=== PATIENT | female | born 1955 | race Caucasian/White ===

== ENCOUNTER 2018-10-26 13:57 | Outpatient (REF) | payer OTHER, SELFPAY ==
[2018-10-26 15:47] LABS: HCT 41.7 % (36.0-46.0); HGB 13.7 g/dL (12.0-15.5); Mean Corp. HGB Concentration 32.9 g/dL (32.0-36.0); Mean Corpuscular Hemoglobin 31.2 pg (27.0-33.0); Mean Platelet Volume 10.6 fL (8.0-11.0); Platelet Count 287 x1000/uL (130-400); RBC 4.39 m/cumm (4.00-5.20); RBC Distribution Width 13.3 % (11.7-14.6); White Blood Cell Count 5.62 k/cumm (4.4-10.8)
[2018-10-26 16:57] LABS: ALT 26 U/L (12-78); AST 17 U/L (15-37); Albumin 4.2 g/dL (3.4-5.0); Alkaline Phosphatase 91 U/L (46-116); BUN 16 mg/dL (7-18); Bilirubin, Total 0.5 mg/dL (0.2-1.0); CREATININE 0.77 mg/dL (0.55-1.02); Calcium 8.8 mg/dL (8.5-10.1); Chloride 106 mmol/L (98-107); Glucose 95 mg/dL (70-100); Potassium 3.9 mmol/L (3.5-5.1); Sodium 143 mmol/L (136-145); Total Protein 6.9 g/dL (6.4-8.2)
[2018-10-27 17:20] LABS: HDL Cholesterol 76 mg/dL (40-60); LDL CHOLESTEROL 89 mg/dL (<100); Triglyceride 52 mg/dL (30-150)
[2018-10-27 17:39] LABS: Cholesterol 178 mg/dL (50-200)
== END 2018-10-26 14:17 ==
LOC: NCHCN 13:57
PROVIDERS: PCP Family Medicine; Visit Provider Family Medicine
DX: Z00.00 Encounter for general adult medical examination without abnormal findings (principal); E78.5 Hyperlipidemia, unspecified
CPT/HCPCS: 80053; 80061; 83721; 85027

== ENCOUNTER 2018-12-28 14:25 | Outpatient (REF) | payer OTHER, SELFPAY ==
--- NOTE | 2018-12-28 13:40 | PAPFT_PTH ---
PATIENT: Ayanna Brooks LOC: [facility] U#:[id number] AGE/SX: 63/F ROOM: RE12/28/[address]: Xochitl Jacome : 1955 BED: DIS: 12/28/2018 SPEC #: [id number] RECD: 12/28/18 18:01 STATUS: ESTEFANÍA RECheryl #: [id number] ORQUIDEA: 12/28/18 13:[address]: Xochitl Jacome DEPT: [facility] Cytology RECD BY: Mamie Monroy ENTERED: 12/28/18 18:01 SP TYPE: PAPFT OTHR DR: Catherine Green Tissues: 1 - CX/ENDOCX FOR PAP SMEARS Procedures: PAP THIN PREP/UVM Screening HPV DNA PROBE Comments: [id number]
== END 2018-12-28 14:45 ==
LOC: LBN 14:25
PROVIDERS: PCP Family Medicine; Visit Provider Obstetrics & Gynecology Gynecology
DX: Z12.4 Encounter for screening for malignant neoplasm of cervix (principal); Z11.51 Encounter for screening for human papillomavirus (HPV)
CPT/HCPCS: 88142; 87624

== ENCOUNTER 2019-01-11 00:12 | Outpatient (CLI) | payer OTHER, SELFPAY ==
--- NOTE | 2019-01-11 08:30 | DI.MAMMO_ITS ---
SYMPTOM/DIAGNOSIS: SCREENING Z12.31 MAMMOGRAM: Mammograms were interpreted according to the usual protocol including computer analysis with CAD system, tomosynthesis and C view imaging. Scattered fibronodular densities are demonstrated in both breasts. There is no dominant mass. There are no suspicious calcifications and there has been no significant interval change when compared with prior images. SUMMARY: No evidence of malignancy, Category 1, yearly screening mammography is recommended. [facility] ASSESSMENT OF FINDINGS: Negative. Category 1. Patient will receive a letter notifying them of these results. BI-RADS category B. There are scattered areas of fibroglandular density.
== END 2019-01-11 00:32 ==
PROVIDERS: PCP Family Medicine; Visit Provider Obstetrics & Gynecology Gynecology
DX: Z12.31 Encounter for screening mammogram for malignant neoplasm of breast (principal)
CPT/HCPCS: 77063; 77067

== ENCOUNTER 2019-02-28 15:40 | Outpatient (REF) | payer OTHER, SELFPAY ==
--- NOTE | 2019-02-28 15:00 | ENDO_PTH ---
PATIENT: Ayanna Brooks LOC: [facility] U#:[id number] AGE/SX: 63/F ROOM: RE02/28/[address]: Xochitl Jacome : 1955 BED: DIS: 02/28/2019 SPEC #: [id number] RECD: 02/28/19 17:16 STATUS: ESTEFANÍA NICOLAS #: [id number] ORQUIDEA: 02/28/19 15:[address]: Xochitl Jacome DEPT: Surgical Specimen RECD BY: Mamie Monroy ENTERED: 02/28/19 17:17 SP TYPE: Endo OTHR DR: Catherine Green Tissues: 1 - ENDOCERVICAL BX/CURRETTE Procedures: GROSS AND MICRO LEVEL 4 Comments: [id number]
== END 2019-02-28 16:00 ==
LOC: LBN 15:40
PROVIDERS: PCP Family Medicine; Visit Provider Obstetrics & Gynecology Gynecology
DX: N88.8 Other specified noninflammatory disorders of cervix uteri (principal); R87.612 Low grade squamous intraepithelial lesion on cytologic smear of cervix (LGSIL); Z78.0 Asymptomatic menopausal state
CPT/HCPCS: 88305

== ENCOUNTER 2019-11-07 09:18 | Outpatient (REF) | payer OTHER, SELFPAY ==
[2019-11-07 14:42] LABS: ALT 28 U/L (14-59); AST 17 U/L (15-37); Alkaline Phosphatase 106 U/L (46-116); BUN 16 mg/dL (7-18); Bilirubin, Total 0.4 mg/dL (0.2-1.0); CREATININE 0.61 mg/dL (0.55-1.02); Calcium 8.8 mg/dL (8.5-10.1); Calculated LDL 79 mg/dL (<100); Chloride 106 mmol/L (98-107); Cholesterol 161 mg/dL (<200); Glucose 95 mg/dL (74-106); HDL Cholesterol 67 mg/dL (40-60); Potassium 4.3 mmol/L (3.5-5.1); Sodium 144 mmol/L (136-145); Total Protein 6.6 g/dL (6.4-8.2); Triglyceride 79 mg/dL (<150)
== END 2019-11-07 09:38 ==
LOC: NCHCN 09:18
PROVIDERS: PCP Family Medicine; Visit Provider Family Medicine
DX: R00.2 Palpitations (principal); E78.5 Hyperlipidemia, unspecified; K21.9 Gastro-esophageal reflux disease without esophagitis; Z00.00 Encounter for general adult medical examination without abnormal findings
CPT/HCPCS: 80053; 80061

== ENCOUNTER 2020-03-09 02:13 | Outpatient (CLI) | payer OTHER, SELFPAY ==
--- NOTE | 2020-03-09 15:42 | DI.MAMMO_ITS ---
EXAM: MAMMO SCREENING CLINICAL HISTORY: screening TECHNIQUE: Mammograms were interpreted according to the usual protocol including computer analysis w [employer] CAD system, tomosynthesis and C-view imaging. COMPARISON: 2009 through 2018 FINDINGS: The breasts are composed of scattered fibroglandular densities, Breast Density category B. No suspicious masses or suspicious microcalcifications are seen. No skin thickening or abnormal axillary lymph nodes are seen. There has been no significant change from prior exams. IMPRESSION: BI-RADS category 1, yearly screening mammography is recommended. Breast density category B, scattered fibroglandular densities.
== END 2020-03-09 02:33 ==
PROVIDERS: PCP Family Medicine; Visit Provider Obstetrics & Gynecology Gynecology
DX: Z12.31 Encounter for screening mammogram for malignant neoplasm of breast (principal)
CPT/HCPCS: 77063; 77067

== ENCOUNTER 2020-03-09 15:41 | Outpatient (REF) | payer OTHER, SELFPAY ==
--- NOTE | 2020-03-09 15:00 | PAPFT_PTH ---
PATIENT: Ayanna Brooks LOC: [facility] U#:[id number] AGE/SX: 64/F ROOM: RE03/09/[address]: TRE Clarke : 1955 BED: DIS: 03/09/2020 SPEC #: [id number] RECD: 03/12/20 12:55 STATUS: ESTEFANÍA RECheryl #: [id number] ORQUIDEA: 03/09/20 15:[address]: Dilma Briones DEPT: [facility] Cytology RECD BY: Mamie Monroy ENTERED: 03/12/20 12:55 SP TYPE: PAPFT OTHR DR: Catherine Green Tissues: 1 - CX/ENDOCX FOR PAP SMEARS Procedures: PAP THIN PREP/UVM Screening HPV DNA PROBE Comments: [id number]
== END 2020-03-09 16:01 ==
LOC: LBN 15:41
PROVIDERS: PCP Family Medicine; Visit Provider Nurse Practitioner Family
DX: Z12.4 Encounter for screening for malignant neoplasm of cervix (principal); Z11.51 Encounter for screening for human papillomavirus (HPV)
CPT/HCPCS: 88142; 87624

== ENCOUNTER 2020-09-26 10:37 | Outpatient (REF) | payer BC, SELFPAY ==
[2020-09-26 21:54] LABS: HCT 41.6 % (36.0-46.0); HGB 13.4 g/dL (11.2-15.7); MCHC 32.2 % (32.0-36.0); MCV 96.3 fL (80-95); MPV 10.3 fL (8.0-11.0); Platelet Count 273 10^3/uL (130-400); RBC 4.32 10^6/uL (3.93-5.22); RDW 12.8 % (11.7-14.6)
[2020-09-26 22:15] LABS: ALT 37 U/L (14-59); AST 20 U/L (15-37); Alkaline Phosphatase 101 U/L (46-116); Anion Gap 5.7 mmol/L (3-11); BUN 18 mg/dL (7-18); Bilirubin, Total 0.4 mg/dL (0.2-1.0); CO2 29.3 mmol/L (21.0-32.0); CREATININE 0.76 mg/dL (0.55-1.02); Calcium 8.6 mg/dL (8.5-10.1); Calculated LDL 103 mg/dL (<100); Chloride 107 mmol/L (98-107); Cholesterol 191 mg/dL (<200); Glucose 95 mg/dL (74-106); HDL Cholesterol 74 mg/dL (40-60); Sodium 142 mmol/L (136-145); Total Protein 6.5 g/dL (6.4-8.2); Triglyceride 72 mg/dL (<150)
== END 2020-09-26 10:57 ==
LOC: NCHCN 10:37
PROVIDERS: PCP Family Medicine; Visit Provider Family Medicine
DX: Z00.00 Encounter for general adult medical examination without abnormal findings (principal); E78.5 Hyperlipidemia, unspecified
CPT/HCPCS: 80053; 80061; 85027

== ENCOUNTER 2021-01-28 01:25 | Outpatient (CLI) | payer BC, SELFPAY ==
--- NOTE | 2021-01-28 13:30 | DI.MAMMO_ITS ---
Exam(s) MAMMO SCREENING EXAM: MAMMO SCREENING CLINICAL HISTORY: screening,Z12.39 TECHNIQUE: Bilateral full field digital CC and MLO mammographic images were obtained with 3D tomosyn thesis and utilizing computer aided detection (CAD). COMPARISON: Available for comparison. FINDINGS: Masses/Architectural Distortion: None seen. Microcalcifications: No suspicious pleomorphic-type are seen. Skin Thickening/Nipple Retraction: None. IMPRESSION: 1. No significant interval change with no specific features of malignancy noted. 2. Unless there is more urgent need, screening mammography is recommended, as per [employer] guidelines. BI-RADS Category 1 - Negative Breast Density - Category B - Scattered areas of fibroglandular density Breast density category C or D implies that the patient has dense breast tissue. Dense breast tissue is very common and is not abnormal but dense breast tissue can make it harder to find cancer on a ma mmogram. Also, dense breast tissue may increase their breast cancer risk. This information about the result of the mammogram report was provided to the patient to raise their awareness. Use this report when you speak with the patient about their risks for breast cancer, which includes their family hist ory. At that time, you may recommend for more screening tests (Ultrasound or MRI) as they might be us eful based on their risk. A negative radiographic report should not delay biopsy if a dominant or clinically suspicious mass is present. Up to ten percent of cancers are not identified on mammography. A negative report may reinforce clinical impression. Adenosis and dense breasts may obscure an underlying neoplasm. False positive reports average 6 to 10%. Patient will receive a letter notifying them of these results.
== END 2021-01-28 01:45 ==
PROVIDERS: PCP Family Medicine; Visit Provider Nurse Practitioner Family
DX: Z12.31 Encounter for screening mammogram for malignant neoplasm of breast (principal)
CPT/HCPCS: 77063; 77067

== ENCOUNTER 2021-01-28 17:53 | Outpatient (REF) | payer BC, SELFPAY ==
--- NOTE | 2021-01-28 15:00 | PAPFT_PTH ---
PATIENT: Ayanna Brooks LOC: [facility] U#:[id number] AGE/SX: 65/F ROOM: RE01/28/[address]: TRE Clarke : 1955 BED: DIS: 01/28/2021 SPEC #: [id number] RECD: 01/28/21 18:37 STATUS: ESTEFANÍA RECheryl #: [id number] ORQUIDEA: 01/28/21 15:[address]: Dilma Briones DEPT: [facility] Cytology RECD BY: Mamie Monroy ENTERED: 01/28/21 18:38 SP TYPE: PAPFT OTHR DR: Catherine Green Tissues: 1 - CX/ENDOCX FOR PAP SMEARS Procedures: PAP THIN PREP/UVM Screening HPV DNA PROBE Comments: [id number]
== END 2021-01-28 17:54 | disposition home or self-care (01) ==
LOC: LBN 17:53
PROVIDERS: PCP Family Medicine; Visit Provider Nurse Practitioner Family
DX: Z12.4 Encounter for screening for malignant neoplasm of cervix (principal); Z87.42 Personal history of other diseases of the female genital tract; Z11.51 Encounter for screening for human papillomavirus (HPV)
CPT/HCPCS: 88142; 87624

== ENCOUNTER 2021-06-13 02:04 | Outpatient (CLI) | payer BC, SELFPAY ==
--- NOTE | 2021-06-13 | DI.RAD_ITS ---
Exam(s) XR THORACIC SPINE COMPLETE EXAM: XR THORACIC SPINE COMPLETE CLINICAL HISTORY: THORACIC SPINE PAIN M54.6. TECHNIQUE: 2D digital imaging was performed of the thoracic spine. Four views were obtained. AP, s juan carlos's and lateral views were obtained. COMPARISON: No exams were available for comparison FINDINGS: BONES: There is a mild superior endplate compression deformity of T10. It is of indeterminate acuity . There are no priors for comparison. The vertebral bodies and posterior elements are unremarkable. DISKS:There is a very mild right convex curvature of the thoracic spine. Mild degenerative changes a re seen in the mid and lower thoracic spine with hypertrophic spurring present. SOFT TISSUE: Visualized lungs are clear. IMPRESSION: Mild superior compression deformity of T10 of indeterminate acuity. Please correlate with patient's symptomatology. Follow-up with MRI or CT scan may be considered. DATA REPOSITORY: RADIATION DOSE DELIVERED:
== END 2021-06-13 02:24 ==
PROVIDERS: PCP Family Medicine; Visit Provider Family Medicine
DX: M54.6 Pain in thoracic spine (principal); M53.84 Other specified dorsopathies, thoracic region
CPT/HCPCS: 72072

== ENCOUNTER 2021-11-14 18:17 | Outpatient (REF) | payer BC, SELFPAY ==
[2021-11-14 14:58] LABS: ALT 24 U/L (14-59); AST 14 U/L (15-37); Albumin 4.2 g/dL (3.4-5.0); Alkaline Phosphatase 120 U/L (46-116); Anion Gap 7.2 mmol/L (3-11); BUN 17 mg/dL (7-18); Bilirubin, Total 0.5 mg/dL (0.2-1.0); CO2 29.8 mmol/L (21.0-32.0); CREATININE 0.7 mg/dL (0.55-1.02); Calcium 9.1 mg/dL (8.5-10.1); Calculated LDL 85 mg/dL (<100); Chloride 105 mmol/L (98-107); Cholesterol 176 mg/dL (<200); Glucose 92 mg/dL (74-106); HDL Cholesterol 73 mg/dL (40-60); Potassium 4.3 mmol/L (3.5-5.1); Sodium 142 mmol/L (136-145); Triglyceride 94 mg/dL (<150)
[2021-11-14 15:19] LABS: Vitamin D 25 Total 33.4 ng/mL (30-100)
== END 2021-11-14 18:18 | disposition home or self-care (01) ==
LOC: NCHCN 18:17
PROVIDERS: PCP Family Medicine; Visit Provider Family Medicine
DX: E78.5 Hyperlipidemia, unspecified (principal); E55.9 Vitamin D deficiency, unspecified; Z00.00 Encounter for general adult medical examination without abnormal findings
CPT/HCPCS: 80053; 80061; 82306

== ENCOUNTER → 2022-02-10 02:32 | Outpatient (CLI) | payer BC, SELFPAY ==
--- NOTE | 2022-02-10 10:30 | DI.MAMMO_ITS ---
Exam(s) MAMMO SCREENING EXAM: MAMMO SCREENING CLINICAL HISTORY: screening TECHNIQUE: Bilateral full field digital CC and MLO mammographic images were obtained with 3D tomosyn thesis and utilizing computer aided detection (CAD). COMPARISON: Available for comparison. FINDINGS: Masses/Architectural Distortion: Stable breast nodules. No suspicious nodules or areas of architectu ral distortion. Microcalcifications: No suspicious pleomorphic-type are seen. Skin Thickening/Nipple Retraction: None. IMPRESSION: 1. No significant interval change with no specific features of malignancy noted. 2. Unless there is more urgent need, screening mammography is recommended, as per [employer] guidelines. BI-RADS Category 1 - Negative Breast Density - Category B - Scattered areas of fibroglandular density Breast density category C or D implies that the patient has dense breast tissue. Dense breast tissue is very common and is not abnormal but dense breast tissue can make it harder to find cancer on a ma mmogram. Also, dense breast tissue may increase their breast cancer risk. This information about the result of the mammogram report was provided to the patient to raise their awareness. Use this report when you speak with the patient about their risks for breast cancer, which includes their family hist ory. At that time, you may recommend for more screening tests (Ultrasound or MRI) as they might be us eful based on their risk. A negative radiographic report should not delay biopsy if a dominant or clinically suspicious mass is present. Up to ten percent of cancers are not identified on mammography. A negative report may reinforce clinical impression. Adenosis and dense breasts may obscure an underlying neoplasm. False positive reports average 6 to 10%. Patient will receive a letter notifying them of these results.
== END ==
PROVIDERS: PCP Family Medicine; Visit Provider Nurse Practitioner Family
DX: Z12.31 Encounter for screening mammogram for malignant neoplasm of breast (principal)
CPT/HCPCS: 77063; 77067

== ENCOUNTER 2022-11-04 07:40 | Day surgery (SDC) | payer BC, SELFPAY ==
--- NOTE | 2022-11-03 20:27 | PDOC.DSDIS_ITS ---
Date of service: 11/04/22 Time of Service: 09:35 Discharge Plan Disposition Patient Disposition: Home Condition: Good Discharge Details Reason For Visit: Colonoscopy Attending Provider: Asif Perkins Primary Care Provider: Catherine Green Home Meds and New Rx's Prescriptions: Continued zolpidem [Ambien] 5 mg tablet 5 mg PO QHS PRN omeprazole 10 MG capsule,delayed release(DR/EC) 20 mg PO DAILY multivitamin [Daily Multi-Vitamin] 1 EACH tablet 1 ea PO DAILY fish,bora,flax oils-om3,6,9no1 [[place] 3-6-9 Complex] 400 MG capsule 400 mg PO DAILY calcium carbonate-vitamin D3 1,000 mg(2,500 mg)-800 unit tablet 1 tab PO DAILY alprazolam [Xanax] 0.25 mg tablet 0.125 mg PO PRN Label Comments: loratadine 10 mg tablet 10 mg PO DAILY PRN benzonatate 100 mg capsule 100 mg PO TID albuterol sulfate [Ventolin HFA] 90 mcg/actuation HFA aerosol inhaler 2 puff inhalation Q6H PRN metoprolol tartrate 25 mg tablet 12.5 mg PO BID PRN (Reason: paroxysmal atrial fibrillation) Qty: 90 5RF atorvastatin [Lipitor] 20 MG tablet 20 mg PO HS Held Xarelto 20 mg tablet 20 mg PO DAILY Qty: 90 6RF Hold Instructions: Resume on 11/05/22. Discontinued bisacodyl [Dulcolax (bisacodyl)] 5 mg tablet,delayed release (DR/EC) 5 mg PO ONCE Qty: 4 0RF Rx Instructions: Take according to provider's instructions for colonoscopy prep. polyethylene glycol 3350 17 gram/dose powder 17 g PO ONCE Qty: 238 0RF Rx Instructions: To be taken as directed by prescriber's office for colonoscopy prep. Discharge Instructions Instructions: Hemorrhoids (GEN), Colorectal Polyps (GEN) Additional Instructions: Ayanna, we were able to complete your colonoscopy today without any difficulty. I did find a polyp. I removed to completely. You also have some very mild internal hemorrhoids. When I have the pathology report on the polyp, I will contact you and notify you if you need to do anything else. 1. If tolerated, consume a soft, low fiber diet for 1-2 days. 2[address] Do not drive, drink alcohol, operate machinery, make critical decisions, or do activities that require coordination or balance for 24 hours. 3. Because air was put into your colon during the procedure, expelling air from your rectum (passing gas or farting) is normal. 4. You may not have a bowel movement for 1-3 days because of the colonoscopy prep. This is normal. 5. Go directly to the emergency room if you notice any of the following: Develop chills (warm to touch), or if you have a thermometer and your temperature is above 101 Difficulty breathing or difficultly swallowing Persistent vomiting Severe abdominal pain, other than gas cramps Severe chest pain Black, tarry stools Any bleeding ? exceeding one tablespoon 6. Call your physician if the site where your intravenous was started becomes red, swollen, painful, and warm to touch. 7. Your physician has reviewed your pre-procedure medications. Please continue to take those medications as previously ordered. You will be given specific information/education regarding any changes to your medications before leaving. Activity:: Activity as Tolerated Diet:: As Tolerated Discharge Orders Discharge Orders: Discharge Order (Routine); Ordered 11/03/22 Ordered By: Asif Perkins DS: Diagnosis Discharge Diagnosis (1) Screening for colon cancer: Status: Acute Asessment and Plan: Follow-up: Polyp
--- NOTE | 2022-11-03 20:30 | W.COLOREPORT ---
Date of service: 11/04/22 Time of Service: 09:36 Colonoscopy Report Date of procedure: 11/04/22 Pre-op diagnosis general: Screening colonoscopy Post-op diagnosis procedure note: other (Colon polyp, mild internal hemorrhoids) Procedure: Colonoscopy Surgeon: Asif Perkins Anesthesia Type: General:No Airway Estimated blood loss (mL): 5 Pathology: other (Colon polyp at 70 cm near the hepatic flexure) Complications: None Disposition: same day Indications: Fidelia is a 66 year old woman who presents for a screening colonoscopy Prep: Miralax/Dulcolax Procedure Start Time: 08:59 Procedure End Time: 09:15 Retraction Time: 11 Findings: Mild internal hemorrhoids, colon polyp at 70 cm Procedure Description: After the induction of monitored anesthetic care, and with the patient in left lateral decubitus position, I began by performing an external anorectal exam.? Perineum and skin were normal, as was the anal verge.? There was no evidence of external hemorrhoids.? Next, I performed a digital rectal exam.? I did not appreciate any abnormal findings.? Next, I advanced a colonoscope into the rectal vault.? I performed retroflexion.? There are grade 1 internal hemorrhoids.? Using insufflation, I then advanced the colonoscope beyond the rectal folds and into the sigmoid colon before advancing towards the cecum.? The quality of the prep was excellent.? The scope was noted to be in the cecum by identification of the ileocecal valve and appendiceal orifice.? I then began withdrawing the colonoscope using repeated irrigation as necessary for full evaluation of the colonic mucosa. Around 70 cm from the anal verge I identified a 0.75 cm polyp. ?It appeared pedunculated in character. ?I was able to remove this with a snare polypectomy. ?I examined the site, and there was minimal bleeding. ?Once this was completed, I continued to withdraw the scope and examine the remainder of the colonic mucosa.?Once the scope was withdrawn to the level of the rectum, great care was taken to examine portions of the rectal folds.? Finally, the scope was withdrawn and the patient was brought to the same-day surgery recovery unit as the anesthetic wore off. ?The findings and instructions were shared with the patient prior to discharge.
[2022-11-04 07:59] VITALS: BP 139/87; PULSE 109; RESP 20; TEMP 36.3; O2SAT 100
[2022-11-04] MEDS: Lactated Ringers 1,000 ML 80 ML IV (08:22)
--- NOTE | 2022-11-04 08:24 | ANES.PREOP_ITS ---
General Info Date of Service Date Performed: 11/04/22 Height: 5 ft 6 in Weight: 66.8 kg Body Mass Index (BMI): 23.8 Surgical Procedure: Operation Date: 11/04/22 09:05 Proposed Procedure Side Surgeon manish Perkins MD Meds Allergies and Home Medications Allergies Allergy/AdvReac Type Severity Reaction Status Date / Time amoxicillin Allergy Severe Hives Verified 11/04/22 08:11 codeine AdvReac Intermediate feel like Verified 11/04/22 08:11 things sre crawing on my skin hydrocodone [From Vicodin] AdvReac Intermediate Nausea Verified 11/04/22 08:11 Home Medication Medication Instructions Recorded omeprazole 10 mg capsule,delayed 20 mg PO DAILY 06/08/13 release fish, borage, flaxseed oils-omega 400 mg PO DAILY 07/14/16 3,6,9 cb #1 400 mg-400 mg-400 mg cap ([place] 3-6-9 Complex) multivitamin (Daily Multi-Vitamin 1 ea PO DAILY 07/14/16 tablet) atorvastatin 20 mg tablet (Lipitor) 20 mg PO HS 01/05/17 calcium carbonate 1,000 mg-vitamin 1 tab PO DAILY 02/28/19 D3 20 mcg (800 unit) tablet alprazolam 0.25 mg tablet (Xanax) 0.125 mg PO PRN 10/28/19 loratadine 10 mg tablet 10 mg PO DAILY PRN 10/28/19 rivaroxaban 20 mg tablet (Xarelto) 20 mg PO DAILY #90 tab-caps 10/28/19 zolpidem 5 mg tablet (Ambien) 5 mg PO QHS PRN 12/06/21 albuterol sulfate 90 mcg/actuation 2 puff inhalation Q6H PRN 01/10/22 aerosol inhaler (Ventolin HFA) benzonatate 100 mg capsule 100 mg PO TID 01/10/22 metoprolol tartrate 25 mg tablet 12.5 mg PO BID PRN paroxysmal 04/18/22 atrial fibrillation #90 tabs Current Visit Medications: Current Medications Generic Name Dose Route Start Last Admin Trade Name Freq PRN Reason Stop Dose Admin Hyoscyamine Sulfate 0.125 mg 11/03/22 20:32 Hyoscyamine 0.125 Mg Sl/Oral/Chew SL DIRECTED PRN Ringer's Solution 1,000 mls @ 80 mls/hr 11/04/22 06:00 11/04/22 08:22 IV 12/03/22 23:59 80 mls/hr INFUSION DILMA Administration IV Miscellaneous Supplies 1 each 11/04/22 06:00 Iv Access IV 12/03/22 23:59 DIRECTED DILMA Ondansetron HCl 4 mg 11/03/22 20:32 Ondansetron 4 Mg/2 Ml Vial IVP Q4H PRN PRN Nausea / Vomiting Sodium Chloride 0 ml 11/04/22 06:00 Normal Saline Flush 10 Ml Syr IV 12/03/22 23:59 PRN PRN Sodium Chloride 0 ml 11/04/22 06:00 Normal Saline 10 Ml Vial IJ 12/03/22 23:59 DIRECTED PRN Sterile Water 0 ml 11/04/22 06:00 Water,Injection,Sterile 10 Ml Vial IJ 12/03/22 23:59 DIRECTED PRN PFSH Active Problems Active Problems: Problem Status Onset Code Paroxysmal atrial fibrillation 02/19/18 I48.0 Mitral valve prolapse 07/16/17 I34.1 History of sleep apnea 02/19/18 Z86.69 Gastroesophageal reflux disease without esophagitis 07/16/17 K21.9 Colitis 07/16/17 K52.9 Screening for colon cancer Z12.11 Collagenous colitis K52.831 Medical History Medical History Abnormal Pap smear of cervix Hx of [facility] in [place] prior to 2007. Result CIN1. 2012 LEEP @ [facility]. PAP: LGSIL x2, 2015. HPV: Neg. Adenomatous colon polyp Anxiety Colitis De Quervain's tenosynovitis Left - injection: 03/28/2019 Ganglion cyst of finger of right hand GERD (gastroesophageal reflux disease) History of postmenopausal HRT (07/10/15) History of sleep apnea Hyperlipidemia, mixed Low grade squamous intraepithelial lesion on cytologic smear of cervix (LGSIL) (07/16/17) CIN1 on [facility] in [place], prior to 2007. LGSIL -2010,2011 x2, 2015. Neg HPV with all Paps. 2012 - LEEP 02/28/2019. Colpo with ECC: Negative dysplasia. Patient will have a repeat Pap in 1 year Mitral valve prolapse followed by [facility] Cardiology. Osteopenia Papanicolaou smear of cervix with low grade squamous intraepithelial lesion (LGSIL) (06/08/13) Paroxysmal atrial fibrillation Pneumonia in 01/10 Postmenopausal HRT (hormone replacement therapy) 2007 OCPs for irreg menses. VMS after stopping OCPs 2009 HRT for postmenopausal VMS. Right elbow tendonitis Right lateral epicondylitis (08/20/15) Trigger finger Injection: 03/28/2019 Vitamin D deficiency Medical History Comments:: 11/04/22 History of PONV, pt reports helpful to have some Zofran. Surgical History Surgical History (Updated 11/04/22 @ 08:12 by Francesca Guzman RN) History of hand surgery R elbow surgery Rx for tendenitis. S/P UPPP (uvulopalatopharyngoplasty) (02/19/18) S/P uvulopalatopharyngoplasty Tobacco Smoking/Tobacco Use Status: Never Alcohol Alcohol Intake: current Alcohol intake frequency: a few times a week Substance Use Substance use: Never Substance use type: does not use Prental History History 0 Para Hx # Term Pregnancies Multiple births Hx # Pregnancies Ectopic pregnancies AB induced Hx Number of Living Children AB spontaneous Vital Signs and Lab Results Vital Signs Most Recent Vital Signs in EMR: Most Recent Vital Signs Temp Pulse Resp BP Pulse Ox 36.3 C L 109 H 20 139/87 100 11/04/22 07:59 11/04/22 07:59 11/04/22 07:59 11/04/22 07:59 11/04/22 07:59 Lab Results Blood Type / Crossmatch: No Data to Display Complete Blood Count: No Data to Display Complete Metabolic Panel: No Data to Display Liver Function Panel: No Data to Display Coagulation Panel: No Data to Display Cardiac Panel: No Data to Display Arterial Blood Gas: No Data to Display Venous Blood Gas: No Data to Display Pancreas Panel: No Data to Display Thyroid Panel: No Data to Display Infectious Disease: No Data to Display Blood Cultures: No Data to Display Toxicology Panel: No Data to Display Imaging and Studies Imaging and Studies Study information below may be from another EMR and interpreted by another provider. Please see original notes in EMR for more complete details. Echocardiogram Summary: Date of study: 08/04/2017 Transthoracic Echocardiography M-mode, complete 2D, complete spectral Doppler, and color Doppler *STUDY CONCLUSIONS* Summary: 1. Left ventricle: The cavity size was normal. Wall thickness was normal. Systolic function was normal. The estimated ejection fraction was 55-60%. Wall motion was normal; there were no regional wall motion abnormalities. 2. Mitral valve: Moderate thickening of the anterior leaflet, consistent with myxomatous proliferation. Late systolic systolic bowing without prolapse, involving the anterior leaflet. There was no significant regurgitation. 3. Right ventricle: The cavity size was normal. Wall thickness was normal. Systolic function was normal. Anesthesia Assessment and Plan Anesthesia History Personal History: PONV Family History: No Family History of Anesthesia Complications Exercise Tolerance Exercise Tolerance: Metabolic Equivalents>4 Pertinent Negatives Pertinent Negatives: No Symptoms of GERD Cardiac & Pulmonary Exam Cardiac Exam: Normal S1/S2 Heart Sounds Pulmonary Exam: Clear Bilateral Breath Sounds Implantable Cardiac Device Does patient have a Pacemaker or an ICD?: No Airway Exam Known Difficult Airway: No Mallampati Class: 1 Mouth Opening: Normal (> 3cm) Thyromental Distance: Greater than 3 cm Neck Range of Motion: Full ROM Neck Circumference: Normal Teeth Condition: Normal Dentition ASA Classification ASA Score: ASA 3 Emergency Case?: No NPO Status NPO Status: NPO Clears >2 hours, Solids >8 hours Anesthesia Plan Resuscitation Status: Full Code Anesthesia Technique: General Anesthesia Airway Planned: Natural Airway Monitors Used: Standard Monitors
[2022-11-04 08:48] VITALS: BMI 23.8
--- NOTE | 2022-11-04 09:07 | BOWEL_PTH ---
PATIENT: Ayanna Brooks LOC: [facility] U#:[id number] AGE/SX: 66/F ROOM: RE11/04/[address]: Asif Perkins MD : 1955 BED: DIS: 11/04/2022 SPEC #: [id number] RECD: 11/04/22 12:43 STATUS: ESTEFANÍA REQ #: [id number] ORQUIDEA: 11/04/22 09:[address]: Asif Perkins DEPT: Surgical Specimen RECD BY: Mamie Monroy ENTERED: 11/04/22 12:44 SP TYPE: Bowel OTHR DR: Catherine Green Tissues: 1 - BIOPSY BOWEL Procedures: GROSS AND MICRO LEVEL 4 Comments: [id number]
[2022-11-04 09:26] VITALS: BP 103/65; PULSE 84; RESP 16; TEMP 36.2; O2SAT 98
[2022-11-04 09:50] VITALS: BP 101/71; PULSE 68; RESP 16; TEMP 36.4; O2SAT 98
--- NOTE | 2022-11-04 09:59 | W.ANESPOSTOP ---
Postoperative Evaluation Date, Time and Location Date Performed: 11/04/22 Time Performed: 09:55 Patient Location: Day Surgery Unit Vital Signs Most Recent Imported Vital Signs: Most Recent Vital Signs Temp Pulse Resp BP Pulse Ox 36.4 C L 68 16 101/71 98 11/04/22 09:50 11/04/22 09:50 11/04/22 09:50 11/04/22 09:50 11/04/22 09:50 Pain Score Most Recent Pain Score: Most Recent Pain Score Pain Level 0 11/04/22 09:50 Assessment Mental Status: Awake (Alert & Oriented to Patient Baseline) Airway and Respiratory Function: Patent airway with normal (patient baseline) respiratory exam Cardiovascular Function: Hemodynamically Stable Hydration Status: Adequately Hydrated Nausea & Vomiting: No Nausea or Vomiting Pain: Pt. Denies Any Pain Peripheral Nerve Block: Patient did not receive a nerve block
== END 2022-11-04 10:14 | disposition home or self-care (01) ==
PROVIDERS: PCP Family Medicine; Visit Provider Surgery
PROC: 0DJD8ZZ Inspection of Lower Intestinal Tract, Via Natural or Artificial Opening Endoscopic (ICD-10-PCS; CPT 45378; principal; 2022-11-04 09:00)
DX: Z12.11 Encounter for screening for malignant neoplasm of colon (principal); K63.5 Polyp of colon; K64.8 Other hemorrhoids
CPT/HCPCS: 45385; 88305; J2405

== ENCOUNTER 2022-12-01 09:09 | Outpatient (CLI) | payer OTHER, SELFPAY ==
--- NOTE | 2022-12-01 09:00 | RT.EKG_ITS ---
APPROVED REPORT Exam: Resting ECG Reason for Exam: paroxysmal Afib Patient Location: O HR:95 bpm ECG Measurements Heart Rate 95 AXIS WI 150 P 46 QRSd 100 QRS 28 QT 349 T 43 QTc 439 Conclusion Sinus rhythm...normal P axis, V-rate 50- 99 Normal Electrocardiogram
== END 2022-12-01 09:10 | disposition home or self-care (01) ==
LOC: DI.CARD 09:09
PROVIDERS: PCP Family Medicine; Visit Provider Internal Medicine Cardiovascular Disease
DX: I48.0 Paroxysmal atrial fibrillation (principal)
CPT/HCPCS: 93010

== ENCOUNTER → 2022-12-01 10:52 | Outpatient (BNVA) | payer OTHER, SELFPAY | PROVIDERS: PCP Family Medicine; Visit Provider Internal Medicine Cardiovascular Disease | DX: I48.0 Paroxysmal atrial fibrillation (principal); I34.1 Nonrheumatic mitral (valve) prolapse; Z79.01 Long term (current) use of anticoagulants | CPT/HCPCS: 93005; 99214 ==

== ENCOUNTER 2022-12-01 18:08 | Outpatient (REF) | payer OTHER, SELFPAY ==
[2022-12-01 15:31] LABS: ALT 21 U/L (14-59); AST 12 U/L (15-37); Albumin 4.3 g/dL (3.4-5.0); Alkaline Phosphatase 113 U/L (46-116); Anion Gap 9.6 mmol/L (3-11); BUN 25 mg/dL (7-18); Bilirubin, Total 0.5 mg/dL (0.2-1.0); CO2 27.4 mmol/L (21.0-32.0); CREATININE 0.7 mg/dL (0.55-1.02); Calcium 9.3 mg/dL (8.5-10.1); Calculated LDL 90 mg/dL (<100); Chloride 107 mmol/L (98-107); Cholesterol 179 mg/dL (<200); Estimated GFR 96.52 (mL/min/1.73m2); Glucose 84 mg/dL (74-106); HDL Cholesterol 76 mg/dL (40-60); Potassium 4.5 mmol/L (3.5-5.1); Sodium 144 mmol/L (136-145); Total Protein 6.9 g/dL (6.4-8.2); Triglyceride 69 mg/dL (<150)
[2022-12-01 17:14] LABS: Vitamin D 25 Total 35.3 ng/mL (30-100)
== END 2022-12-01 18:09 | disposition home or self-care (01) ==
LOC: NCHCN 18:08
PROVIDERS: PCP Family Medicine; Visit Provider Family Medicine
DX: E78.5 Hyperlipidemia, unspecified (principal); E55.9 Vitamin D deficiency, unspecified; M85.88 Other specified disorders of bone density and structure, other site
CPT/HCPCS: 80053; 80061; 82306

== ENCOUNTER 2023-01-20 01:48 | Outpatient (CLI) | payer OTHER, SELFPAY ==
--- NOTE | 2023-01-20 10:33 | DI.US_ITS ---
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 Ejection fraction is 60 to 65%. Wall motio n is normal Both atria are normal in size Normal right ventricular size and systolic function Aortic valve is sclerotic and trileaflet without stenosis or regurgitation Mildly thickened mitral leaflets with mild systolic prolapse. There is trace to mild mitral regurgit ation Normal tricuspid valve with trace to mild regurgitation. Estimated right ventricular systolic pressu re is 22 mmHg Wall motion Left Ventricle The left ventricle is normal size. The left ventricular systolic function is normal. The left ventric ular ejection fraction is within the normal range. There is normal left ventricular wall thickness. T here is normal LV segmental wall motion. There is no ventricular septal defect visualized. LVEF is 60 -65%. Right Ventricle The right ventricle is normal size. The right ventricular systolic function is normal. Atria The left atrium size is normal. The right atrium size is normal. The interatrial septum is intact wit h no evidence for an atrial septal defect. Aortic Valve The Aortic valve is sclerotic. Aortic valve is trileaflet. There is no aortic valvular stenosis. No a ortic regurgitation is present. Mitral Valve Mitral valve leaflets are mildly thickened. No evidence of mitral valve stenosis. Trace to mild mitr al regurgitation. Mild mitral valve prolapse. Tricuspid Valve The tricuspid valve is normal in structure. There is no tricuspid valve stenosis. Trace to mild tricu spid regurgitation. Pulmonic Valve The pulmonary valve is normal in structure. There is no pulmonic valvular stenosis. Trace pulmonic r egurgitation. Great Vessels The aortic root is normal in size. The ascending aorta is normal Aortic arch is normal in caliber. IV C is normal in size and collapses >50% with inspiration. Pericardium There is no pericardial effusion. 2D Dimensions IVSD d PLAX 0.85 cm F: 0.6-1.0 LV Vol A2C d MOD 80.6 mL LVPW d PLAX 0.82 cm F: 0.6 - 1.0 LV Vol A4C d MOD 81.2 mL LVID d PLAX 3.94 cm F: 3.8 - 5.2 LA vol/ BSA A2C s A-L 19.8 mL/m2 LVDs 2.50 cm F: 2.2 - 3.5 LA vol/ BSA A4C s A-L 20.7 mL/m2 Ao Root d 3.21 cm F: 2.7 - 3.3 LA Vol/ BSA Biplane s A-L 22.1 mL/m2 RA Area A4C 10.48 cm2 LA Area A4C s MOD 15.29 cm2 RA Vol/ BSA A4C s A-L 13.9 mL/m2 LA Area A2C s MOD 13.67 cm2 Ao Asc Diam d 3.22 cm F: 2.3 - 3.1 LV EF A4C MOD 58.1 % LV EF Teichholz 66.7 % LV EF A2C MOD 59.6 % LVEF (Manning's) 57.65 % F: 54 - 74 LV EF Biplane MOD 57.7 % LV Volume 64.13 mL F: 46 - 106 SV 47.05 mL LV Volume Index 36.64 mL/m2 F: 29 - 61 SV Index 26.89 mL/m2 LV Vol Biplane MOD 81.6 mL FS 36.30 % M-Mode TAPSE 1.83 cm (M/F) >1.7 LV Diastology MV E' medial 0.077 (>0.07 m/s) E/A Ratio 0.9 LV E/e MED 6.65 (<14) MV E Vmax 0.51 (0.4-1.3 m/s) MV E' lateral 0.089 (>0.1 m/s) MV A Vmax 0.55 (0.4-1.3 m/s) LV E/e LAT 5.75 (<14) MV E/A Ratio 0.91 MV E/E' medial 6.69 MV E/E' lateral 5.77 Aortic Valve LVOT Area 3.25 cm2 AoV Area Vmax 2.63 cm2 LVOT Vmax 0.92 m/s AoV Area/ BSA (Vmax) 1.50 cm2/m2 LVOT Mean Dion. 0.67 m/s GILMA Mean Dion. 2.58 cm2 LVOT Peak Grad 3.4 mmHg GILMA Mean Dion. Index 1.48 cm2/m2 LVOT Mean Grad 2.0 mmHg LVOT VTI 0.173 m LVOT Diam s 2.00 cm AoV Vmax 1.13 m/s Velocity Ratio 0.81 AoV Mean Dion. 0.85 m/s AoV Peak Grad 5.1 mmHg LVOT SV 56.12 mL AoV Mean Grad 3.1 mmHg AoV VTI 0.204 m AoV Area VTI 2.76 cm2 AoV Area/ BSA (VTI) 1.57 cm/m2 Mitral Valve MV DT 229 (160-240 msec) MV PHT 66 msec MV Area PHT 3.31 cm2 MV VTI 0.181 m MV Area VTI 3.11 (4.0-6.0 cm2) Pulmonary Valve PV Vmax 0.74 (0.5-1.5 m/s) RVOT Peak Gr. 1.26 mmHg PV Peak Grad 2.2 mmHg RVOT Mean Gr. 0.60 mmHg PV Mean Grad 1.6 mmHg RVOT VTI 0.097 m PV VTI 0.152 m RVOT Vmax 0.56 m/s Tricuspid Valve TR Peak Grad 19.7 mmHg TR Vmax 2.22 m/s RA Pressure 3.00 mmHg RVSP (TR) 22.7 mmHg
== END 2023-01-20 02:08 ==
LOC: DI 01:48
PROVIDERS: PCP Family Medicine; Visit Provider Internal Medicine Cardiovascular Disease
DX: I34.1 Nonrheumatic mitral (valve) prolapse (principal); I48.0 Paroxysmal atrial fibrillation
CPT/HCPCS: 93306

== ENCOUNTER 2023-02-16 01:24 | Outpatient (CLI) | payer OTHER, SELFPAY ==
--- NOTE | 2023-02-16 07:15 | DI.MAMMO_ITS ---
Exam(s) MAMMO SCREENING EXAM: MAMMO SCREENING CLINICAL HISTORY: screening,z12.39 TECHNIQUE: Bilateral full field digital CC and MLO mammographic images were obtained with 3D tomosyn thesis and utilizing computer aided detection (CAD). COMPARISON: Available for comparison. FINDINGS: Masses/Architectural Distortion: There is stable bilateral breast nodules. No suspicious nodules or areas of architectural distortion are seen. Microcalcifications: No suspicious pleomorphic-type are seen. Skin Thickening/Nipple Retraction: None. IMPRESSION: 1. No significant interval change with no specific features of malignancy noted. 2. Unless there is more urgent need, screening mammography is recommended, as per [employer] guidelines. BI-RADS Category 2 - Benign Findings Breast Density - Category B - Scattered areas of fibroglandular density Breast density category C or D implies that the patient has dense breast tissue. Dense breast tissue is very common and is not abnormal but dense breast tissue can make it harder to find cancer on a ma mmogram. Also, dense breast tissue may increase their breast cancer risk. This information about the result of the mammogram report was provided to the patient to raise their awareness. Use this report when you speak with the patient about their risks for breast cancer, which includes their family hist ory. At that time, you may recommend for more screening tests (Ultrasound or MRI) as they might be us eful based on their risk. A negative radiographic report should not delay biopsy if a dominant or clinically suspicious mass is present. Up to ten percent of cancers are not identified on mammography. A negative report may reinforce clinical impression. Adenosis and dense breasts may obscure an underlying neoplasm. False positive reports average 6 to 10%. Patient will receive a letter notifying them of these results.
== END 2023-02-16 01:44 ==
LOC: DI 01:25
PROVIDERS: PCP Family Medicine; Visit Provider Obstetrics & Gynecology
DX: Z12.31 Encounter for screening mammogram for malignant neoplasm of breast (principal)
CPT/HCPCS: 77063; 77067

== ENCOUNTER 2023-02-16 11:17 | Outpatient (REF) | payer OTHER, SELFPAY ==
--- NOTE | 2023-02-16 10:10 | PAPFT_PTH ---
PATIENT: Ayanna Brooks LOC: [facility] U#:[id number] AGE/SX: 67/F ROOM: RE02/16/[address]: Xochitl Jacome : 1955 BED: DIS: 02/16/2023 SPEC #: [id number] RECD: 02/16/23 13:06 STATUS: ESTEFANÍA NCIOLAS #: [id number] ORQUIDEA: 02/16/23 10:[address]: Xochitl Jacome DEPT: [facility] Cytology RECD BY: Mamie Monroy ENTERED: 02/16/23 13:06 SP TYPE: PAPFT OTHR DR: Catherine Green Tissues: 1 - CX/ENDOCX FOR PAP SMEARS Procedures: PAP THIN PREP/UVM Screening HPV DNA PROBE Comments: [id number]
== END 2023-02-16 11:18 | disposition home or self-care (01) ==
LOC: LBN 11:17
PROVIDERS: PCP Family Medicine; Visit Provider Obstetrics & Gynecology Gynecology
DX: Z11.51 Encounter for screening for human papillomavirus (HPV) (principal); Z01.419 Encounter for gynecological examination (general) (routine) without abnormal findings; Z87.42 Personal history of other diseases of the female genital tract
CPT/HCPCS: 88142; 87624

== ENCOUNTER → 2023-03-26 13:03 | Outpatient (BNVA) | payer OTHER, SELFPAY | PROVIDERS: PCP Family Medicine; Referring Provider Family Medicine; Visit Provider Internal Medicine Cardiovascular Disease | DX: I48.0 Paroxysmal atrial fibrillation (principal); I34.1 Nonrheumatic mitral (valve) prolapse; Z79.01 Long term (current) use of anticoagulants | CPT/HCPCS: 99212; 99213 ==

== ENCOUNTER 2024-01-04 16:36 | Emergency (ER) | payer OTHER, SELFPAY ==
[2024-01-04] VITALS (43 sets, daily range): BP systolic 93–140; BP diastolic 65–93; PULSE 0–139; RESP 11–25; TEMP 36.8; O2SAT 81–100
--- NOTE | 2024-01-04 16:30 | RT.EKG_ITS ---
APPROVED REPORT Exam: Resting ECG Reason for Exam: rapid afib, sob Patient Location: E HR:122 bpm ECG Measurements Heart Rate 122 AXIS SD [id number] P [id number] QRSd 78 QRS 77 QT 329 T 49 QTc 470 Conclusion Atrial fibrillation...V-rate 70-183, irreg A-activity afib rvr, normal axis, normal intervals, non ischemic
[2024-01-04] MEDS: Normal Saline 1,000 ML 1000 ML IV (17:00)
[2024-01-04 17:03] LABS: Abs Immature Grans 0.03 10^3/uL (0.0-0.06); Absolute Basophil Count 0.07 10^3/uL (0.0-0.2); Absolute Eosinophil Count 0.08 10^3/uL (0.0-0.7); Absolute Lymphocyte Count 2.43 10^3/uL (1.2-3.4); Absolute Monocyte Count 0.63 10^3/uL (0.1-0.8); Absolute Neutrophil Count 4.51 10^3/uL (1.2-6.7); Basophils % 0.9; HCT 40.6 % (36.0-46.0); HGB 13.2 g/dL (11.2-15.7); Immature Grans % 0.4; Lymphocytes % 31.4; MCH 31.6 pg (27.0-33.0); MCHC 32.5 % (32.0-36.0); MCV 97 fL (80-95); MPV 9.8 fL (8.0-11.0); Monocytes % 8.1; Neutrophils % 58.2; Platelet Count 294 10^3/uL (130-400); RBC 4.18 10^6/uL (3.93-5.22); RDW 13.2 % (11.7-14.6); RDW-SD 47.4 fL; WBC 7.75 10^3/uL (4.4-10.8)
--- NOTE | 2024-01-04 17:07 | ED.GENADUL_ITS ---
Discharge Plan Disposition Patient Disposition: Home Condition: Improving Discharge Details Chief Complaint: Chest Pain Clinical Impression: A-fib Primary Care Provider: Catherine Green ED Provider: Vaughn Melo Home Meds and New Rx's Prescriptions: No Action Xarelto 20 mg tablet 20 mg PO DAILY Qty: 90 6RF Hold Instructions: Resume on 11/05/22. omeprazole 10 MG capsule,delayed release(DR/EC) 20 mg PO DAILY multivitamin [Daily Multi-Vitamin] 1 EACH tablet 1 ea PO DAILY fish,bora,flax oils-om3,6,9no1 [[place] 3-6-9 Complex] 400 MG capsule 400 mg PO DAILY Patient Comments: Takes this three times a week calcium carbonate-vitamin D3 1,000 mg(2,500 mg)-800 unit tablet 1 tab PO DAILY alprazolam [Xanax] 0.25 mg tablet 0.25 mg PO PRN Patient Comments: loratadine 10 mg tablet 10 mg PO DAILY PRN albuterol sulfate [Ventolin HFA] 90 mcg/actuation HFA aerosol inhaler 2 puff inhalation Q6H PRN metoprolol tartrate 25 mg tablet 12.5 mg PO BID PRN (Reason: paroxysmal atrial fibrillation) Qty: 90 5RF atorvastatin [Lipitor] 20 MG tablet 20 mg PO HS Discharge Instructions Instructions: A-fib (Atrial Fibrillation) (ED) Additional Instructions: Please 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 HPI General Date/Time Provider Initiated Documentation: 01/04/24 16:45 . HPI Narrative: 68-year-old female history of paroxysmal A-fib on rivaroxaban, home metoprolol 12.5 mg twice daily, presents with A-fib RVR over the last couple of days, noticed worsening shortness of breath today; given total of 10 mg metoprolol IV by EMS. Related Data Home Medications Medication Instructions Recorded Confirmed omeprazole 10 mg capsule,delayed 20 mg PO DAILY 06/08/13 01/04/24 release fish, borage, flaxseed oils-omega 400 mg PO DAILY 07/14/16 01/04/24 3,6,9 cb #1 400 mg-400 mg-400 mg cap ([place] 3-6-9 Complex) multivitamin (Daily Multi-Vitamin 1 ea PO DAILY 10/17/16 04/08/24 tablet) atorvastatin 20 mg tablet (Lipitor) 20 mg PO HS 01/05/17 01/04/24 calcium carbonate 1,000 mg-vitamin 1 tab PO DAILY 02/28/19 01/04/24 D3 20 mcg (800 unit) tablet alprazolam 0.25 mg tablet (Xanax) 0.25 mg PO PRN 10/28/19 01/04/24 loratadine 10 mg tablet 10 mg PO DAILY PRN 10/28/19 01/04/24 rivaroxaban 20 mg tablet (Xarelto) 20 mg PO DAILY #90 tab-caps 10/28/19 01/04/24 albuterol sulfate 90 mcg/actuation 2 puff inhalation Q6H PRN 01/10/22 01/04/24 aerosol inhaler (Ventolin HFA) metoprolol tartrate 25 mg tablet 12.5 mg (1/2 x 25 mg) PO BID PRN 04/18/22 01/04/24 paroxysmal atrial fibrillation #90 tabs Previous Rx's Medication Instructions Recorded rivaroxaban 20 mg tablet (Xarelto) 20 mg PO DAILY #90 tab-caps 10/28/19 metoprolol tartrate 25 mg tablet 12.5 mg (1/2 x 25 mg) PO BID PRN 04/18/22 paroxysmal atrial fibrillation #90 tabs Allergies Allergy/AdvReac Type Severity Reaction Status Date / Time amoxicillin Allergy Severe Hives Verified 01/04/24 17:02 codeine AdvReac Intermediate feel like Verified 01/04/24 17:02 things sre crawing on my skin hydrocodone [From Vicodin] AdvReac Intermediate Nausea Verified 01/04/24 17:02 General Stated Complaint: Chest Pain MIGUEL ÁNGEL: 2 Review of Systems Narrative: Review of Systems Constitutional: negative Eyes: negative ENT: negative Cardiovascular: Atrial fibrillation Respiratory: Shortness of breath Gastrointestinal: negative : negative Musculoskeletal: negative Skin: negative Neurologic: negative Psych: negative Exam Narrative Exam Narrative: Physical Examination General: alert, awake, cooperative, resting comfortably, no acute distress HEENT: normocephalic, atraumatic; PERRL, EOM intact, conjunctiva normal; no nasal discharge; moist mucous membranes, oral and pharyngeal mucosa normal, tolerating secretions Neck: supple, trachea midline; full ROM Chest: normal to inspection Respiratory: normal respiratory effort, speaking in full sentences, clear to auscultation, no wheezing, rales or rhonchi Cardiac: Irregularly irregular tachycardia S1S2 intact, no murmurs rubs or gallops GI: abdomen soft, non-tender, non-distended; no palpable mass or hepatosplenomegaly Skin: no lesions, rashes or trauma appreciated Neuro: AAOx3, normal speech, moving all extremities Extremities: No peripheral edema Psych: Appropriate mood and affect Course Vital Signs Vital signs: Vital Signs Temperature 36.8 C 01/04/24 16:37 Pulse 60 01/04/24 16:37 Respiratory Rate 17 01/04/24 16:37 Blood Pressure 114/73 01/04/24 16:37 Pulse Oximetry 100 01/04/24 16:37 Temperature 36.8 C 01/04/24 16:37 Temperature Source Temporal Artery Scan 01/04/24 16:37 Pulse 60 01/04/24 16:37 Respiratory Rate 19 01/04/24 16:45 Respiratory Effort Normal 01/04/24 16:45 Respiratory Depth Normal 01/04/24 16:45 Respiratory Pattern Normal 01/04/24 16:45 Blood Pressure 114/73 01/04/24 16:37 Blood Pressure Position Sitting 01/04/24 16:37 Pulse Oximetry 100 01/04/24 16:37 Oxygen Delivery Method Room Air 01/04/24 16:37 Oxygen Flow Rate 0 01/04/24 16:37 Pain Level 0 01/04/24 16:37 Lab/Test Results Lab/Test Results: Laboratory Tests Range/Units 01/04/24 16:55 WBC (4.4-10.8) 10^3/uL 7.75 RBC (3.93-5.22) 10^6/uL 4.18 Hgb (11.2-15.7) g/dL 13.2 Hct (36.0-46.0) % 40.6 MCV (80-95) fL 97 H MCH (27.0-33.0) pg 31.6 MCHC (32.0-36.0) % 32.5 RDW (11.7-14.6) % 13.2 Plt Count (130-400) 10^3/uL 294 MPV (8.0-11.0) fL 9.8 Immature Gran % 0.4 Neutrophils % 58.2 Lymphocytes % 31.4 Monocytes % 8.1 Eosinophils % 1.0 Basophils % 0.9 Nucleated RBC % (0.0-0.3) % 0.0 Absolute Neutrophils (1.2-6.7) 10^3/uL 4.51 Absolute Lymphocytes (1.2-3.4) 10^3/uL 2.43 Absolute Monocytes (0.1-0.8) 10^3/uL 0.63 Absolute Eosinophils (0.0-0.7) 10^3/uL 0.08 Absolute Basophils (0.0-0.2) 10^3/uL 0.07 Medical Decision Making 68-year-old female presents brought in by EMS for evaluation of A-fib RVR associate with shortness of breath given total of 10 mg metoprolol IV and route. Resting comfortably was having some shortness of breath earlier today no longer experiencing the symptoms. No peripheral edema. Afebrile nontoxic. No recent illness no recent travel. EKG A-fib RVR. Will assess electrolytes will provide fluid bolus, close reassessment consider additional agent for rate control if needed. 20: 08 rate controlled to 76-90 beats per minute. Resting comfortably ambulatory without assistance. No respiratory distress Quality:SDOH Health Related Social Needs: No Data to Display PFSH All Active Problems (Updated 01/04/24 @ 20:08 by Vaughn Melo MD) A-fib (Chronic) Inflammatory polyps (Acute) Paroxysmal atrial fibrillation (Acute 02/19/18) Mitral valve prolapse (Acute 07/16/17) History of sleep apnea (Acute 02/19/18) Gastroesophageal reflux disease without esophagitis (Acute 07/16/17) Colitis (Acute 07/16/17) Screening for colon cancer (Acute) Collagenous colitis (Acute) Medical History Abnormal Pap smear of cervix Hx of [facility] in [place] prior to 2007. Result CIN1. 2013 LEEP @ [facility]. PAP: LGSIL 2010,2011 x2, 2015. HPV: Neg. Adenomatous colon polyp Anxiety Colitis De Quervain's tenosynovitis Left - injection: 03/28/2019 Ganglion cyst of finger of right hand GERD (gastroesophageal reflux disease) History of postmenopausal HRT (07/10/15) History of sleep apnea Hyperlipidemia, mixed Low grade squamous intraepithelial lesion on cytologic smear of cervix (LGSIL) (07/16/17) CIN1 on [facility] in [place], prior to 2007. LGSIL -2010,2011 x2, 2016. Neg HPV with all Paps. 2013 - LEEP 02/28/2019. Colpo with ECC: Negative dysplasia. Patient will have a repeat Pap in 1 year Mitral valve prolapse followed by [facility]. Osteopenia Papanicolaou smear of cervix with low grade squamous intraepithelial lesion (LGSIL) (06/08/13) Paroxysmal atrial fibrillation Pneumonia in 01/10 Postmenopausal HRT (hormone replacement therapy) 2007 OCPs for irreg menses. VMS after stopping OCPs 2009 HRT for postmenopausal VMS. Right elbow tendonitis Right lateral epicondylitis (08/20/15) Trigger finger Injection: 03/28/2019 Vitamin D deficiency Surgical History History of colonoscopy (~10/2022) History of hand surgery R elbow surgery Rx for tendenitis. S/P UPPP (uvulopalatopharyngoplasty) (02/19/18) S/P uvulopalatopharyngoplasty Social History (Updated 04/27/23 @ 20:10 by Xochitl Jacome MD) Smoking/Tobacco Use Status: Never Smoking risk assessment performed?: Yes Alcohol Intake: current Alcohol Intake frequency: a few times a week Drug use: Never Substance use type: does not use Household members: other Details: in 2018. 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 Pets and animals: Yes (Shon funkeimelanie [place]) Sexually active: No What is your relationship status?: Panel score (0-1 are the most socially isolated patients): 0 What type of physical activity do you participate in: none and independent ambulation Seatbelt use: always Do you feel safe at home: Yes (pt lives alone) History History 0 Para Hx # Term Pregnancies Multiple births Hx # Pregnancies Ectopic pregnancies AB induced Hx Number of Living Children AB spontaneous PAWSS Have you Been Recently Intoxicated or Drunk Within the Last 30 days?: No Have you Ever Experienced Previous Episodes of Alcohol Withdrawal?: No Have you ever Experienced Withdrawal Seizures?: No Have you ever Experienced Delirium Tremens(DT)s?: No Have you ever undergone Alcohol Rehabilitation Treatment (i.e, inpt ot outpatient treatment programs)?: No Have you ever Experienced Blackouts?: No Have you ever Combined Alcohol with other Downers within the last 90 days?: No Have you ever Combined Alcohol with any other Substance of Abuse during the last 90 days?: No Result: 0
[2024-01-04 17:16] LABS: INR 1.1 (0.9-1.1); PTT Activated 26.7 sec (23.6-32.8); Prothrombin Time 10.9 sec (9.1-11.1)
--- NOTE | 2024-01-04 17:18 | DI.RAD_ITS ---
Exam(s) XR CHEST 2V PA LATERAL EXAM: XR CHEST 2V PA LATERAL CLINICAL HISTORY: afib rvr TECHNIQUE: 2D digital imaging was performed. Two views. COMPARISON: CR XR THORACIC SPINE COMPLETE from 06/13/2021 FINDINGS: HEART: Normal size. Aorta: Not dilated. PULMONARY VASCULATURE: Normal. LUNGS: Minimal linear scarring or atelectasis at the left lung base, otherwise clear. PLEURAL SPACE: No pleural effusion or pneumothorax. BONE:Unremarkable for age. Soft tissues: Unremarkable. IMPRESSION: No acute abnormality. DATA REPOSITORY: RADIATION DOSE DELIVERED:
[2024-01-04 17:26] LABS: ALT 34 U/L (14-59); AST 16 U/L (15-37); Albumin 3.7 g/dL (3.4-5.0); Alkaline Phosphatase 102 U/L (46-116); Anion Gap 7.7 mmol/L (3-11); BUN 19 mg/dL (7-18); Bilirubin, Total 0.2 mg/dL (0.2-1.0); CO2 25.3 mmol/L (21.0-32.0); CREATININE 0.9 mg/dL (0.55-1.02); Calcium 8.1 mg/dL (8.5-10.1); Chloride 110 mmol/L (98-107); Estimated GFR 70.51 (mL/min/1.73m2); Glucose 106 mg/dL (74-106); Magnesium 2.3 mg/dL (1.8-2.4); NT-proBNP 2592 pg/mL (<300); Potassium 3.7 mmol/L (3.5-5.1); Sodium 143 mmol/L (136-145); TSH (W/Ref FT4) 3.07 uIU/mL (0.36-3.74); Total Protein 6.7 g/dL (6.4-8.2)
[2024-01-04] MEDS: dilTIAZem 25 MG/5 ML VIAL 20 MG IVP (18:37)
--- NOTE | 2024-01-04 19:30 | RT.EKG_ITS ---
APPROVED REPORT Exam: Resting ECG Reason for Exam: post meds Patient Location: E HR:76 bpm ECG Measurements Heart Rate 76 AXIS MS [id number] P [id number] QRSd 81 QRS 40 QT 384 T 26 QTc 432 Conclusion Atrial fibrillation...? atrial activity afib, rate controlled, normal axis, non ischemic
== END 2024-01-04 20:25 | disposition home or self-care (01) ==
PROVIDERS: Emergency Provider Emergency Medicine; PCP Family Medicine
DX: I48.0 Paroxysmal atrial fibrillation (principal); E78.5 Hyperlipidemia, unspecified; Z79.01 Long term (current) use of anticoagulants
CPT/HCPCS: 36415; 80053; 93005; 96374; 99285; 71046; 83735; 83880; 84443; 85025; 85610; 85730; 93010; 99284

== ENCOUNTER 2024-01-05 11:03 | Emergency (ER) | payer OTHER, SELFPAY ==
[2024-01-05] VITALS (57 sets, daily range): BP systolic 84–136; BP diastolic 49–111; PULSE 64–176; RESP 14–30; TEMP 37; O2SAT 89–98
--- NOTE | 2024-01-05 11:00 | RT.EKG_ITS ---
APPROVED REPORT Exam: Resting ECG Reason for Exam: afib Patient Location: E HR:176 bpm ECG Measurements Heart Rate 176 AXIS NC 78 P 0 QRSd 76 QRS 45 QT 270 T 25 QTc 463 Conclusion Supraventricular tachycardia...V-rate>(220-age), QRSd<120 Atrial fibrillation with rapid ventricular response at a rate of 176 bpm. Normal axis. Narrow QRS. NC and QTc within normal limits. Compared to prior dated yesterday rate controlled atrial fibrillat ion has been replaced by A-fib with RVR. No acute ST segment abnormalities. No T wave inversions. T wave inversion in lead III.
--- NOTE | 2024-01-05 11:04 | ED.GENADUL_ITS ---
Discharge Plan Disposition Patient Disposition: Home Discharge Details Clinical Impression: Atrial fibrillation with RVR Primary Care Provider: Catherine Green ED Provider: Dewayne Cronin Home Meds and New Rx's Prescriptions: New metoprolol succinate 25 mg capsule,sprinkle,ER 24hr 25 mg PO DAILY Qty: 30 0RF Continued Xarelto 20 mg tablet 20 mg PO DAILY Qty: 90 6RF Hold Instructions: Resume on 11/05/22. omeprazole 10 MG capsule,delayed release(DR/EC) 20 mg PO DAILY multivitamin [Daily Multi-Vitamin] 1 EACH tablet 1 ea PO DAILY fish,bora,flax oils-om3,6,9no1 [[place] 3-6-9 Complex] 400 MG capsule 400 mg PO DAILY Patient Comments: Takes this three times a week calcium carbonate-vitamin D3 1,000 mg(2,500 mg)-800 unit tablet 1 tab PO DAILY alprazolam [Xanax] 0.25 mg tablet 0.25 mg PO PRN Patient Comments: loratadine 10 mg tablet 10 mg PO DAILY PRN albuterol sulfate [Ventolin HFA] 90 mcg/actuation HFA aerosol inhaler 2 puff inhalation Q6H PRN metoprolol tartrate 25 mg tablet 12.5 mg PO BID PRN (Reason: paroxysmal atrial fibrillation) Qty: 90 5RF atorvastatin [Lipitor] 20 MG tablet 20 mg PO HS Discharge Instructions Instructions: A-fib (Atrial Fibrillation) (ED) Additional Instructions: You were seen in the emergency department for your rapid heart rate. Cardiology recommended that you start taking metoprolol every day. A prescription has been sent to your pharmacy. Please follow-up with your hull sorter next week. Please return to the emergency department if you develop chest pain shortness of breath or if you pass out. HPI General Date/Time Provider Initiated Documentation: 01/05/24 11:04 . HPI Narrative: MDM This is an overall very well-appearing normothermic and not hypotensive 68-year-old female with atrial fibrillation with rapid ventricular response for which she will receive 10 mg of diltiazem. Patient also has concerning chest pain so we will obtain 2 sets of troponins. Equal breath sounds so doubt pneumothorax. No tearing quality to suggest aortic dissection. Patient has been adherent with her rivaroxaban however given her shortness of breath will obtain a D-dimer and use a years criteria cutoff of 1000. Not hypotensive nor dialysis patient so low suspicion for tamponade. No cough nor fevers to suggest pneumonia. No rash to chest to suggest zoster. No vomiting to suggest increased risk for esophageal rupture. Will obtain magnesium and TSH. Patient is not an alcoholic to suggest increased risk for withdrawal oral. Patient has had no unintentional weight gain and no lower extremity edema so my suspicion is low for acute heart failure. 12 PM Repeat ECG showing rate controlled atrial fibrillation at a rate of 98. I spoke with Dr. Camejo from cardiology. She advised starting the patient on metoprolol succinate daily 25 mg. I have asked health community case manager Nery that the patient seen within the week by cardiology for follow-up. 12:10 PM CBC lacks anemia thrombocytopenia and leukocytosis. 12:35 PM Patient metabolic panel showing mild anion gap but normal glucose and normal bicarbonate??not consistent with DKA. Mild hypernatremia. Normal potassium. No RAQUEL. Normal reassuring magnesium. Reassuring normal TSH. Positive D-dimer for which patient will undergo CTA to assess for PE. Negative troponin. 1:17 PM CTA negative for PE. 2:51 PM Negative repeat troponin. Patient felt improved. Rates have been relatively controlled. Patient tolerated p.o. in the ED. She transiently had a soft blood pressure but her maps were above 65. She received 500 cc of crystalloid. We discussed initiating metoprolol per recommendation from Dr. Camejo. I advised ED return for any chest pain nausea vomiting or any syncope. Patient understood her return indications and was discharged with an empiric trial of expectant outpatient management. 3:55 PM As we are preparing for discharge patient had excursions of A-fib with RVR with rates into the 140s. I gave her 5 mg of IV metoprolol and 25 mg of p.o. metoprolol tartrate. Her rate improved into the 90s. She tolerated p.o.Patient also had similar pressures yesterday. She is mentating clearly. Chronic conditions affecting the care of the patient: Mitral valve prolapse History obtained from an outside historian: N/A External record review: [facility] [place] EMR [Diagnostic interpretations performed by me: Per my independent interpretation chest x-ray shows: Per my independent interpretation EKG shows:No acute cardiopulmonary process Atrial fibrillation with rapid ventricular response at a rate of 176 bpm. Normal axis. Narrow QRS. AK and QTc within normal limits. Compared to prior dated yesterday rate controlled atrial fibrillation has been replaced by A-fib with RVR. No acute ST segment abnormalities. No T wave inversions. T wave inversion in lead III. Medications: 10 mg diltiazem Social determinants of health affecting disposition: N/A Management discussed with: Cardiology Treatment/interventions considered: N/A Response to therapies provided: Improved heart rates in the ED HPI This is a 68-year-old female with a history of mitral valve prolapse arriving to the emergency department via private vehicle in the setting of shortness of breath and chest pain. Patient reports that her symptoms have not been intermittent for the past approximately 6 days. She was seen yesterday in the emergency department and received 10 mg of metoprolol with paramedics and 20 mg of diltiazem in the ED. Patient reports she has been adherent with her nightly rivaroxaban. She went to her primary care provider today but was advised to come to the ED. She is not on any scheduled metoprolol. She endorses a central chest pain between her shoulders. She feels short of breath when she walks upstairs. She has had no unintentional weight gain. No lower extremity swelling. She does not routinely drink alcohol. She has not taken any falls. She has not been vomiting. Exam General: Well-appearing in no acute distress speaking in complete sentences. Head: Normocephalic, atraumatic. Eye: Extraocular eye movements intact. No conjunctival injection. No scleral icterus. Ear, nose, mouth, throat: Grossly normal inspection. Normal voice, handling secretions normally. Neck: Trachea midline. Cardiovascular: Well-perfused distal extremities. Irregular irregular rhythm. Respiratory: Nonlabored respiration. Clear lungs bilaterally. Gastrointestinal: Nondistended abdomen. Soft nontender. Musculoskeletal: No significant lower extremity pitting edema. Moving all 4 extremities spontaneously. Skin: Normal for age and race, grossly normal temperature and turgor. No acute rash. Neurologic: Alert and appropriate, no apparent acute deficits. Psychiatric: Mood and manner are appropriate. Grooming and personal hygiene are appropriate. Related Data Home Medications Medication Instructions Recorded Confirmed omeprazole 10 mg capsule,delayed 20 mg PO DAILY 06/08/13 01/05/24 release fish, borage, flaxseed oils-omega 400 mg PO DAILY 07/14/16 01/05/24 3,6,9 cb #1 400 mg-400 mg-400 mg cap ([place] 3-6-9 Complex) multivitamin (Daily Multi-Vitamin 1 ea PO DAILY 07/14/16 01/05/24 tablet) atorvastatin 20 mg tablet (Lipitor) 20 mg PO HS 01/05/17 01/05/24 calcium carbonate 1,000 mg-vitamin 1 tab PO DAILY 02/28/19 01/05/24 D3 20 mcg (800 unit) tablet alprazolam 0.25 mg tablet (Xanax) 0.25 mg PO PRN 10/28/19 01/05/24 loratadine 10 mg tablet 10 mg PO DAILY PRN 10/28/19 01/05/24 rivaroxaban 20 mg tablet (Xarelto) 20 mg PO DAILY #90 tab-caps 10/28/19 01/05/24 albuterol sulfate 90 mcg/actuation 2 puff inhalation Q6H PRN 01/10/22 01/05/24 aerosol inhaler (Ventolin HFA) metoprolol tartrate 25 mg tablet 12.5 mg (1/2 x 25 mg) PO BID PRN 04/18/22 01/05/24 paroxysmal atrial fibrillation #90 tabs metoprolol succinate 25 mg capsule 25 mg PO DAILY #30 caps 01/05/24 sprinkle, ext. release 24 hr Previous Rx's Medication Instructions Recorded rivaroxaban 20 mg tablet (Xarelto) 20 mg PO DAILY #90 tab-caps 10/28/19 metoprolol tartrate 25 mg tablet 12.5 mg (1/2 x 25 mg) PO BID PRN 04/18/22 paroxysmal atrial fibrillation #90 tabs metoprolol succinate 25 mg capsule 25 mg PO DAILY #30 caps 01/05/24 sprinkle, ext. release 24 hr Allergies Allergy/AdvReac Type Severity Reaction Status Date / Time amoxicillin Allergy Severe Hives Verified 01/05/24 11:44 codeine AdvReac Intermediate feel like Verified 01/05/24 11:44 things sre crawing on my skin hydrocodone [From Vicodin] AdvReac Intermediate Nausea Verified 01/05/24 11:44 General MIGUEL ÁNGEL: 2 Medical Decision Making Quality:SDOH Health Related Social Needs: No Data to Display Critical Care Time Critical Care Time Critical Care Time: Yes Total Critical Care Time: 30 Attestation: Critical care involving atrial fibrillation with rapid ventricular response requiring IV rate control PFSH All Active Problems (Updated 01/05/24 @ 11:42 by Dewayne Cronin MD) Atrial fibrillation with RVR (Acute) A-fib (Chronic) Inflammatory polyps (Acute) Paroxysmal atrial fibrillation (Acute 02/19/18) Mitral valve prolapse (Acute 07/16/17) History of sleep apnea (Acute 02/19/18) Gastroesophageal reflux disease without esophagitis (Acute 07/16/17) Colitis (Acute 07/16/17) Screening for colon cancer (Acute) Collagenous colitis (Acute) Medical History Abnormal Pap smear of cervix Hx of [place] in [place] prior to 2007. Result CIN1. 2012 LEEP @ [facility]. PAP: LGSIL 2010,2011 x2, 2015. HPV: Neg. Adenomatous colon polyp Anxiety Colitis De Quervain's tenosynovitis Left - injection: 03/28/2019 Ganglion cyst of finger of right hand GERD (gastroesophageal reflux disease) History of postmenopausal HRT (07/10/15) History of sleep apnea Hyperlipidemia, mixed Low grade squamous intraepithelial lesion on cytologic smear of cervix (LGSIL) (07/16/17) CIN1 on [facility] in [place], prior to 2007. LGSIL -2010,2011 x2, 2015. Neg HPV with all Paps. 2012 - LEEP 02/28/2019. Colpo with ECC: Negative dysplasia. Patient will have a repeat Pap in 1 year Mitral valve prolapse followed by [facility] Cardiology. Osteopenia Papanicolaou smear of cervix with low grade squamous intraepithelial lesion (LGSIL) (06/08/13) Paroxysmal atrial fibrillation Pneumonia in 01/10 Postmenopausal HRT (hormone replacement therapy) 2007 OCPs for irreg menses. VMS after stopping OCPs 2009 HRT for postmenopausal VMS. Right elbow tendonitis Right lateral epicondylitis (08/20/15) Trigger finger Injection: 03/28/2019 Vitamin D deficiency Surgical History History of colonoscopy (~10/2022) History of hand surgery R elbow surgery Rx for tendenitis. S/P UPPP (uvulopalatopharyngoplasty) (02/19/18) S/P uvulopalatopharyngoplasty Social History (Updated 04/27/23 @ 20:10 by Xochitl Jacome MD) Smoking/Tobacco Use Status: Never Smoking risk assessment performed?: Yes Alcohol Intake: current Alcohol Intake frequency: a few times a week Drug use: Never Substance use type: does not use Household members: other Details: in 2018. 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
--- NOTE | 2024-01-05 11:15 | DI.RAD_ITS ---
Exam(s) XR PORTABLE CHEST AP EXAM: XR PORTABLE CHEST AP CLINICAL HISTORY: Chest pain TECHNIQUE: 2D digital imaging was performed. COMPARISON: CR XR CHEST 2V PA LATERAL from 01/04/2024 FINDINGS: LUNGS: Minimal linear scarring again noted at the left lung base. Lungs are otherwise clear. No ple ural abnormality seen. HEART: Normal size. AORTA: Normal diameter. BONES: Unremarkable for age. Soft tissues: Unremarkable. IMPRESSION: No acute findings. DATA REPOSITORY: RADIATION DOSE DELIVERED:
[2024-01-05] MEDS: dilTIAZem 25 MG/5 ML VIAL 10 MG IVP ×2 (11:37→11:41)
--- NOTE | 2024-01-05 11:45 | RT.EKG_ITS ---
APPROVED REPORT Exam: Resting ECG Reason for Exam: Atrial fibrillation Patient Location: E HR:98 bpm ECG Measurements Heart Rate 98 AXIS MI [id number] P [id number] QRSd 78 QRS 40 QT 340 T 25 QTc 436 Conclusion Atrial fibrillation...V-rate 80-138, irreg A-activity Rate controlled atrial fibrillation at a rate of 98. Normal axis. QTc within normal limits. Narrow complex. No acute injury pattern. Compared to prior rate control atrial fibrillation has replaced A-fib with RVR.
[2024-01-05] MEDS: dilTIAZem 30 MG TAB PO (11:56)
[2024-01-05 12:00] LABS: Abs Immature Grans 0.01 10^3/uL (0.0-0.06); Absolute Basophil Count 0.06 10^3/uL (0.0-0.2); Absolute Eosinophil Count 0.09 10^3/uL (0.0-0.7); Absolute Lymphocyte Count 1.56 10^3/uL (1.2-3.4); Absolute Monocyte Count 0.71 10^3/uL (0.1-0.8); Absolute Neutrophil Count 5.84 10^3/uL (1.2-6.7); Basophils % 0.7; Eosinophils % 1.1; HCT 40.6 % (36.0-46.0); HGB 13.1 g/dL (11.2-15.7); Immature Grans % 0.1; Lymphocytes % 18.9; MCH 31.2 pg (27.0-33.0); MCHC 32.3 % (32.0-36.0); MCV 97 fL (80-95); MPV 10.2 fL (8.0-11.0); Monocytes % 8.6; Neutrophils % 70.6; Platelet Count 298 10^3/uL (130-400); RDW 13.2 % (11.7-14.6); WBC 8.27 10^3/uL (4.4-10.8)
--- NOTE | 2024-01-05 12:02 | NUR.NOTE ---
Referral faxed to [facility] Cardiology for afib within 1 week. Nursing Note:
[2024-01-05 12:27] LABS: Anion Gap 11.1 mmol/L (3-11); BUN 13 mg/dL (7-18); CO2 25.9 mmol/L (21.0-32.0); CREATININE 0.8 mg/dL (0.55-1.02); Chloride 110 mmol/L (98-107); Estimated GFR 81.21 (mL/min/1.73m2); Glucose 104 mg/dL (74-106); Magnesium 2.1 mg/dL (1.8-2.4); Potassium 3.8 mmol/L (3.5-5.1); Sodium 147 mmol/L (136-145); TSH (W/Ref FT4) 1.94 uIU/mL (0.36-3.74); Troponin I < 50 ng/L (< or =60)
--- NOTE | 2024-01-05 12:30 | DI.CT_ITS ---
Exam(s) CT CHEST PE CTA EXAM: CT CHEST PE CTA CLINICAL HISTORY: Positive dimer. TECHNIQUE: Imaging Protocol: Axial CT angiography was performed with multi-slice acquisition and mu lti-planar reconstructions as well as axial, coronal and sagittal MIP reconstructions. CONTRAST MATERIAL: Intravenous: Omnipaque 350 Contrast volume:100 ml COMPARISON: CR XR THORACIC SPINE COMPLETE from 06/13/2021 CR XR CHEST 2V PA LATERAL from 01/04/2024 CR XR PORTABLE CHEST AP from 01/05/2024 FINDINGS: Pulmonary Arteries: No evidence of filling defect to suggest pulmonary emboli. Tracheobronchial tree: No mucous plugging. Mediastinum and Liliana: No dominant adenopathy or fluid collection. Pulmonary parenchyma: No consolidation or dominant measurable mass. Minimal linear scarring versus at electasis at the lung bases. Pleura: No effusion or pneumothorax. Heart: The heart is not dilated. Mild coronary artery calcifications are seen. Aorta: Thoracic aorta non-dilated. No dissection. Upper abdomen: No acute findings. Bones: Stable mild T10 compression fracture. Tubes, Catheters, and Lines: None Soft tissues: Unremarkable. IMPRESSION: No evidence of pulmonary embolism or other acute abnormality. RADIATION DOSE DELIVERED: Total DLP DATA REPOSITORY: All CT scans at this facility are submitted to the National Radiology Data Registry (NRDR) Dose Index Registry (DIR) with the [employer] (ACR). RADIATION OPTIMIZATION: All CT scans at this facility use at least one of these dose optimization te chniques: automated exposure control; mA and/or kV adjustment per patient size (includes targeted exa ms where dose is matched to clinical indication); or iterative reconstruction.
[2024-01-05 12:31] LABS: D-Dimer 1159 ng/mlFEU (<500)
[2024-01-05] MEDS: Normal Saline - Diluent 50 ML VIAL IJ (12:58)
[2024-01-05] MEDS: Omnipaque 350 MG/ML 500 ML BTL-Imaging package IJ (12:59)
[2024-01-05] MEDS: Normal Saline 500 ML IV (13:43)
[2024-01-05 14:08] LABS: Troponin I < 50 ng/L (< or =60)
[2024-01-05] MEDS: Metoprolol 25 MG TAB PO (15:23)
[2024-01-05] MEDS: Metoprolol 5 MG/5 ML VIAL IVP (15:23)
== END 2024-01-05 16:05 | disposition home or self-care (01) ==
PROVIDERS: Emergency Provider Emergency Medicine; PCP Family Medicine
DX: I48.0 Paroxysmal atrial fibrillation (principal); E78.5 Hyperlipidemia, unspecified; Z79.01 Long term (current) use of anticoagulants
CPT/HCPCS: 71275; 80048; 93005; 96374; 99284; 71045; 83735; 84443; 84484; 85025; 85379; 93010

== ENCOUNTER 2024-01-07 10:45 | Outpatient (CLI) | payer OTHER, SELFPAY ==
--- NOTE | 2024-01-07 10:45 | RT.EKG_ITS ---
APPROVED REPORT Exam: Resting ECG Reason for Exam: AFIB w/ RVR Patient Location: O HR:147 bpm ECG Measurements Heart Rate 147 AXIS NC [id number] P [id number] QRSd 84 QRS 58 QT 303 T 28 QTc 474 Conclusion Atrial fibrillation...V-rate 104-197, irreg A-activity Baseline wander in lead(s) V2
== END 2024-01-07 10:46 | disposition home or self-care (01) ==
LOC: DI.CARD 10:45
PROVIDERS: PCP Family Medicine; Referring Provider Family Medicine; Visit Provider Internal Medicine Cardiovascular Disease
DX: I48.91 Unspecified atrial fibrillation (principal)
CPT/HCPCS: 93010

== ENCOUNTER 2024-01-07 11:34 | Observation (INO) | payer OTHER, SELFPAY ==
[2024-01-07] VITALS (32 sets, daily range): BP systolic 85–136; BP diastolic 56–105; PULSE 59–153; RESP 12–26; TEMP 36.4–37.2; O2SAT 92–98
--- NOTE | 2024-01-07 11:30 | RT.EKG_ITS ---
APPROVED REPORT Exam: Resting ECG Reason for Exam: Chest Pain Patient Location: E HR:143 bpm ECG Measurements Heart Rate 143 AXIS IA [id number] P [id number] QRSd 80 QRS 51 QT 297 T 29 QTc 459 Conclusion Atrial fibrillation RVR
[2024-01-07] MEDS: dilTIAZem 25 MG/5 ML VIAL 20 MG IVP (11:53)
[2024-01-07 12:03] LABS: Abs Immature Grans 0.02 10^3/uL (0.0-0.06); Absolute Basophil Count 0.04 10^3/uL (0.0-0.2); Absolute Eosinophil Count 0.06 10^3/uL (0.0-0.7); Absolute Lymphocyte Count 1.43 10^3/uL (1.2-3.4); Absolute Monocyte Count 0.53 10^3/uL (0.1-0.8); Absolute Neutrophil Count 4.78 10^3/uL (1.2-6.7); Basophils % 0.6; Eosinophils % 0.9; HGB 13.1 g/dL (11.2-15.7); Immature Grans % 0.3; Lymphocytes % 20.8; MCH 31.1 pg (27.0-33.0); MCHC 32.8 % (32.0-36.0); MCV 95 fL (80-95); MPV 9.7 fL (8.0-11.0); Monocytes % 7.7; Neutrophils % 69.7; Platelet Count 285 10^3/uL (130-400); RBC 4.21 10^6/uL (3.93-5.22); RDW 13.2 % (11.7-14.6); RDW-SD 45.2 fL; WBC 6.86 10^3/uL (4.4-10.8)
[2024-01-07 12:13] LABS: INR 1.1 (0.9-1.1); Prothrombin Time 11.2 sec (9.1-11.1)
[2024-01-07 12:29] LABS: ALT 84 U/L (14-59); AST 26 U/L (15-37); Albumin 4.1 g/dL (3.4-5.0); Alkaline Phosphatase 129 U/L (46-116); Anion Gap 11.4 mmol/L (3-11); BUN 16 mg/dL (7-18); Bilirubin, Total 0.3 mg/dL (0.2-1.0); CO2 25.6 mmol/L (21.0-32.0); CREATININE 0.8 mg/dL (0.55-1.02); Calcium 8.9 mg/dL (8.5-10.1); Chloride 106 mmol/L (98-107); Estimated GFR 81.21 (mL/min/1.73m2); Glucose 109 mg/dL (74-106); Magnesium 2.3 mg/dL (1.8-2.4); NT-proBNP 3052 pg/mL (<300); Sodium 143 mmol/L (136-145); TSH 2.11 uIU/Ml (0.36-3.74); Total Protein 7.3 g/dL (6.4-8.2); Troponin I < 50 ng/L (< or =60)
[2024-01-07] MEDS: dilTIAZem 25 MG/5 ML VIAL 10 MG IVP (12:39)
--- NOTE | 2024-01-07 13:16 | DI.RAD_ITS ---
Exam(s) XR PORTABLE CHEST AP EXAM: XR PORTABLE CHEST AP CLINICAL HISTORY: sob TECHNIQUE: 2D digital imaging was performed of the chest. One image was obtained. An AP view was ob tained. COMPARISON: CR XR PORTABLE CHEST AP from 01/05/2024 FINDINGS: MEDIASTINUM: Normal. HEART: Normal. PULMONARY VASCULATURE: Normal. LUNGS: There is linear scarring in the lung bases laterally. No focal consolidating infiltrates are present. PLEURAL SPACE: No pleural effusion or pneumothorax. BONE:Within normal limits for the patient's age. OTHER FINDINGS:Normal. IMPRESSION: No acute pulmonary findings. DATA REPOSITORY: RADIATION DOSE DELIVERED:
--- NOTE | 2024-01-07 14:16 | W.ED.GENAD ---
Discharge Plan Disposition Patient Disposition: Admit to [facility] Condition: Stable Discharge Details Chief Complaint: Arrhythmia Clinical Impression: Elevated brain natriuretic peptide (BNP) level, Paroxysmal atrial fibrillation, Atrial fibrillation with RVR Primary Care Provider: Catherine Green ED Provider: Hi Chirinos Home Meds and New Rx's Prescriptions: No Action Xarelto 20 mg tablet 20 mg PO DAILY Qty: 90 6RF Hold Instructions: Resume on 11/05/22. omeprazole 10 MG capsule,delayed release(DR/EC) 20 mg PO DAILY multivitamin [Daily Multi-Vitamin] 1 EACH tablet 1 ea PO DAILY fish,bora,flax oils-om3,6,9no1 [[place] 3-6-9 Complex] 400 MG capsule 400 mg PO DAILY Patient Comments: Takes this three times a week calcium carbonate-vitamin D3 1,000 mg(2,500 mg)-800 unit tablet 1 tab PO DAILY alprazolam [Xanax] 0.25 mg tablet 0.25 mg PO PRN Patient Comments: loratadine 10 mg tablet 10 mg PO DAILY PRN albuterol sulfate [Ventolin HFA] 90 mcg/actuation HFA aerosol inhaler 2 puff inhalation Q6H PRN metoprolol tartrate 25 mg tablet 12.5 mg PO BID PRN (Reason: paroxysmal atrial fibrillation) Qty: 90 5RF atorvastatin [Lipitor] 20 MG tablet 20 mg PO HS metoprolol succinate 25 mg capsule,sprinkle,ER 24hr 25 mg PO DAILY Qty: 30 0RF [facility] General Date/Time Provider Initiated Documentation: 01/07/24 11:35. Limitations to Documentation: no limitations. Information obtained by: patient and RN/MD. HPI Narrative: 68-year-old female with past medical history of A-fib presents for evaluation of uncontrolled tachycardia and shortness of breath. The patient has been seen in the emergency department twice this week for RVR. She reports compliance with her medication. She reports that her symptoms have been progressively worsening all week until today when she reports significant shortness of breath. She denies any chest pain. The patient reports that she feels very short of breath and fatigued, but cannot tell that her heart rate is very fast. She reports the shortness of breath is constant, worse with exertion. Not associated with cough fever or other sick symptoms. She was seen in cardiology clinic this morning and found to be A-fib with RVR. Cardiology sent her to the emergency department for rate control, hospitalization and plan for cardioversion tomorrow Related Data Home Medications Medication Instructions Recorded Confirmed omeprazole 10 mg capsule,delayed 20 mg PO DAILY 06/08/13 01/07/24 release fish, borage, flaxseed oils-omega 400 mg PO DAILY 07/14/16 01/07/24 3,6,9 cb #1 400 mg-400 mg-400 mg cap ([place] 3-6-9 Complex) multivitamin (Daily Multi-Vitamin 1 ea PO DAILY 07/14/16 01/07/24 tablet) atorvastatin 20 mg tablet (Lipitor) 20 mg PO HS 01/05/17 01/07/24 calcium carbonate 1,000 mg-vitamin 1 tab PO DAILY 02/28/19 01/07/24 D3 20 mcg (800 unit) tablet alprazolam 0.25 mg tablet (Xanax) 0.25 mg PO PRN 10/28/19 01/07/24 loratadine 10 mg tablet 10 mg PO DAILY PRN 10/28/19 01/07/24 rivaroxaban 20 mg tablet (Xarelto) 20 mg PO DAILY #90 tab-caps 10/28/19 01/07/24 albuterol sulfate 90 mcg/actuation 2 puff inhalation Q6H PRN 01/10/22 01/07/24 aerosol inhaler (Ventolin HFA) metoprolol tartrate 25 mg tablet 12.5 mg (1/2 x 25 mg) PO BID PRN 04/18/22 01/07/24 paroxysmal atrial fibrillation #90 tabs metoprolol succinate 25 mg capsule 25 mg PO DAILY #30 caps 01/05/24 01/07/24 sprinkle, ext. release 24 hr Previous Rx's Medication Instructions Recorded rivaroxaban 20 mg tablet (Xarelto) 20 mg PO DAILY #90 tab-caps 10/28/19 metoprolol tartrate 25 mg tablet 12.5 mg (1/2 x 25 mg) PO BID PRN 04/18/22 paroxysmal atrial fibrillation #90 tabs metoprolol succinate 25 mg capsule 25 mg PO DAILY #30 caps 01/05/24 sprinkle, ext. release 24 hr Allergies Allergy/AdvReac Type Severity Reaction Status Date / Time amoxicillin Allergy Severe Hives Verified 01/07/24 11:43 codeine AdvReac Intermediate feel like Verified 01/07/24 11:43 things sre crawing on my skin hydrocodone [From Vicodin] AdvReac Intermediate Nausea Verified 01/07/24 11:43 General Stated Complaint: Arrhythmia MIGUEL ÁNGEL: 2 Exam Narrative Exam Narrative: Review of Systems: All systems reviewed & are unremarkable except as noted in HPI and below Well-developed, mild acute distress NCAT PERRL, normal conjunctiva Irregularly irregular, tachycardic Mild increased work of breathing, crackles at bases, no hypoxia Nondistended abdomen Extremities w/o deformity, no cyanosis, no edema No rashes or lesions. no focal neurologic deficits Appropriate mood and affect Course Vital Signs Vital signs: Vital Signs Pulse Oximetry 98 01/07/24 11:39 Temperature 36.9 C 01/07/24 11:45 Temperature Source Temporal Artery Scan 01/07/24 11:45 Pulse 77 01/07/24 13:16 Pulse Rhythm Irregular 01/07/24 12:58 Pulse 92 H 01/07/24 13:20 Respiratory Rate 24 01/07/24 13:20 Respiratory Effort Normal 01/07/24 12:58 Respiratory Depth Normal 01/07/24 12:58 Respiratory Pattern Normal 01/07/24 12:58 Blood Pressure 108/72 01/07/24 13:16 Blood Pressure Mean 82 01/07/24 13:16 Blood Pressure Position Sitting 01/07/24 12:58 Pulse Oximetry 96 01/07/24 13:20 Oxygen Delivery Method Room Air 01/07/24 12:58 Oxygen Flow Rate 0 01/07/24 12:58 Pain Level 0 01/07/24 11:45 Lab/Test Results Lab/Test Results: Laboratory Tests Range/Units 01/07/24 11:50 WBC (4.4-10.8) 10^3/uL 6.86 RBC (3.93-5.22) 10^6/uL 4.21 Hgb (11.2-15.7) g/dL 13.1 Hct (36.0-46.0) % 40.0 MCV (80-95) fL 95 MCH (27.0-33.0) pg 31.1 MCHC (32.0-36.0) % 32.8 RDW (11.7-14.6) % 13.2 Plt Count (130-400) 10^3/uL 285 MPV (8.0-11.0) fL 9.7 Immature Gran % 0.3 Neutrophils % 69.7 Lymphocytes % 20.8 Monocytes % 7.7 Eosinophils % 0.9 Basophils % 0.6 Nucleated RBC % (0.0-0.3) % 0.0 Absolute Neutrophils (1.2-6.7) 10^3/uL 4.78 Absolute Lymphocytes (1.2-3.4) 10^3/uL 1.43 Absolute Monocytes (0.1-0.8) 10^3/uL 0.53 Absolute Eosinophils (0.0-0.7) 10^3/uL 0.06 Absolute Basophils (0.0-0.2) 10^3/uL 0.04 PT (9.1-11.1) sec 11.2 H INR (0.9-1.1) 1.1 Sodium (136-145) mmol/L 143 Potassium (3.5-5.1) mmol/L 4.0 Chloride (98-107) mmol/L 106 Carbon Dioxide (21.0-32.0) mmol/L 25.6 Anion Gap (3-11) mmol/L 11.4 H BUN (7-18) mg/dL 16 Creatinine (0.55-1.02) mg/dL 0.8 Est GFR (CKD-EPI 2020) (mL/min/1.73m2) 81.21 Glucose (74-106) mg/dL 109 H Calcium (8.5-10.1) mg/dL 8.9 Magnesium (1.8-2.4) mg/dL 2.3 Total Bilirubin (0.2-1.0) mg/dL 0.3 AST (15-37) U/L 26 ALT (14-59) U/L 84 H Alkaline Phosphatase (46-116) U/L 129 H Troponin I (< or =60) ng/L < 50 NT-Pro-B Natriuret Pep (<300) pg/mL 3052 H Total Protein (6.4-8.2) g/dL 7.3 Albumin (3.4-5.0) g/dL 4.1 TSH (0.36-3.74) uIU/Ml 2.11 Medical Decision Making Emergent evaluation of tacky dysrhythmia. Initial differential includes malignant arrhythmia, electrolyte derangement, ACS. Patient is short of breath, but has no chest pain. Her EKG reveals A-fib with a rate of 143. Discussed with cardiology the plan for rate control, hospitalization and cardioversion given her refractory A-fib at this point. Lab work obtained. She has no leukocytosis or significant anemia. Her renal function is normal. Initial troponin negative. Her BNP is noted to be slightly elevated. Worse from a few days ago. Given her shortness of breath and mild crackles on exam, the patient would likely benefit from an echocardiogram. She was given 2 doses of IV diltiazem which resulted in rate control. Blood pressure remained stable. She has been compliant with her anticoagulation, the speech language pathologist assistant feels comfortable continuing this for cardioversion tomorrow does not recommend further anticoagulation. I discussed with the hospitalist, who will admit the patient to their service for further management. Medical Records Medical records reviewed: Yes I reviewed the patient's medical records. Lab Data Lab results reviewed: Yes I reviewed the patient's lab results. Quality:SDOH Health Related Social Needs: Health related social needs risk of homeless Critical Care Time Critical Care Time Critical Care Time: Yes Total Critical Care Time: 34 Attestation: CRITICAL CARE Upon my evaluation, this patient had a high probability of imminent or life-threatening deterioration due to cardiac dysrhythmia which required my direct attention, intervention, and personal management. I have personally provided 34 minutes of critical care time exclusive of time spent on separately billable procedures. Time includes review of laboratory data, radiology results, discussion with consultants, and monitoring for potential decompensation. Interventions were performed as documented above [facility] All Active Problems (Updated 01/07/24 @ 14:21 by Hi Chirinos MD) Elevated brain natriuretic peptide (BNP) level (Acute) Atrial fibrillation with RVR (Acute) A-fib (Chronic) Inflammatory polyps (Acute) Paroxysmal atrial fibrillation (Acute 02/19/18) Mitral valve prolapse (Acute 07/16/17) History of sleep apnea (Acute 02/19/18) Gastroesophageal reflux disease without esophagitis (Acute 07/16/17) Colitis (Acute 07/16/17) Screening for colon cancer (Acute) Collagenous colitis (Acute) Medical History Adenomatous colon polyp Vitamin D deficiency Osteopenia Anxiety Ganglion cyst of finger of right hand Trigger finger Injection: 03/28/2019 De Quervain's tenosynovitis Left - injection: 03/28/2019 Hyperlipidemia, mixed History of sleep apnea Paroxysmal atrial fibrillation History of postmenopausal HRT (07/10/15) Low grade squamous intraepithelial lesion on cytologic smear of cervix (LGSIL) (07/16/17) CIN1 on [facility] in [place], prior to 2007. LGSIL -2010,2011 x2, 2015. Neg HPV with all Paps. 2012 - LEEP 02/28/2019. Colpo with ECC: Negative dysplasia. Patient will have a repeat Pap in 1 year Papanicolaou smear of cervix with low grade squamous intraepithelial lesion (LGSIL) (06/08/13) Right lateral epicondylitis (08/20/15) Right elbow tendonitis Pneumonia in 01/10 Mitral valve prolapse followed by [facility] Cardiology. GERD (gastroesophageal reflux disease) Abnormal Pap smear of cervix Hx of CKC in [place] prior to 2007. Result CIN1. 2012 LEEP @ [facility]. PAP: LGSIL 2010,2011 x2, 2015. HPV: Neg. Postmenopausal HRT (hormone replacement therapy) 2007 OCPs for irreg menses. VMS after stopping OCPs 2009 HRT for postmenopausal VMS. Colitis Surgical History History of colonoscopy (~10/2022) History of hand surgery S/P uvulopalatopharyngoplasty S/P UPPP (uvulopalatopharyngoplasty) (02/19/18) R elbow surgery Rx for tendenitis. Social History Smoking/Tobacco Use Status: Never Smoking risk assessment performed?: Yes Alcohol Intake: current Alcohol Intake frequency: a few times a week Drug use: Never Substance use type: does not use Household members: other Details: in 2018. 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
[2024-01-07 15:00] LABS: Troponin I < 50 ng/L (< or =60)
--- NOTE | 2024-01-07 17:14 | W.PM.HP.N ---
Date of service: 01/07/24 Time of Service: 17:14 Assessment and Plan Assessment and plan (1) Atrial fibrillation with RVR: Status: Acute Assessment and plan: Seen three times in the ED this week for PAF Seen by Dr Camejo Plan to cardiovert in am - anesthesia notified (Dr Camejo notified - Dr Mccarty will call anesthesia to book tomorrow am @ [id number]) NPO after midnight Diltiazem IV push for HR 130s - given IV push diltiazem in ED twice May need diltiazem drip Denies chest pain, shortness of breath reported when ambulating, lungs are clear. discussed with Dr Mccarty History of Present Illness History of Present Illness Chief Complaint: Palpitations, fatigue Narrative: This is a 68-year-old female with a known history of mitral valve prolapse presenting to the [facility] emergency department for evaluation of persistent symptoms of shortness of breath and chest pain over the past six days. The symptoms have not been intermittent and have prompted her to seek medical attention. She was previously seen in the emergency department 01/03 and received 10 mg of metoprolol from paramedics and 20 mg of diltiazem while in the ED. Despite this, her symptoms have not improved. The patient reports adherence to her nightly rivaroxaban regimen. She sought consultation with her primary care provider 01/04 but was advised to come to the emergency department for further evaluation. She described the chest pain as central, located between her shoulders. Additionally, she experienced shortness of breath, particularly when walking upstairs. There have been no associated symptoms such as unintentional weight gain, lower extremity swelling, alcohol consumption, falls, or vomiting. Patient's rate was controlled and she was discharged to home. Given the persistence and nature of her symptoms, further evaluation and management are warranted to assess for potential complications related to her mitral valve prolapse and to address her current symptoms effectively. She was evaluated by Dr Camejo, section chief and it was recommended she be placed on observation status on the medical floor for further assessment, testing and treatment. Plan to do electrical cardioversion on 01/07. [facility] All Active Problems (Updated 01/07/24 @ 14:21 by Hi Chirinos MD) Elevated brain natriuretic peptide (BNP) level (Acute) Atrial fibrillation with RVR (Acute) A-fib (Chronic) Inflammatory polyps (Acute) Paroxysmal atrial fibrillation (Acute 02/19/18) Mitral valve prolapse (Acute 07/16/17) History of sleep apnea (Acute 02/19/18) Gastroesophageal reflux disease without esophagitis (Acute 07/16/17) Colitis (Acute 07/16/17) Screening for colon cancer (Acute) Collagenous colitis (Acute) Medical History Adenomatous colon polyp Vitamin D deficiency Osteopenia Anxiety Ganglion cyst of finger of right hand Trigger finger Injection: 03/28/2019 De Quervain's tenosynovitis Left - injection: 03/28/2019 Hyperlipidemia, mixed History of sleep apnea Paroxysmal atrial fibrillation History of postmenopausal HRT (07/10/15) Low grade squamous intraepithelial lesion on cytologic smear of cervix (LGSIL) (07/16/17) 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 LGSIL -2010,2011 x2, 2015. Neg HPV with all Paps. 2012 - LEEP 02/28/2019. Colpo with ECC: Negative dysplasia. Patient will have a repeat Pap in 1 year Papanicolaou smear of cervix with low grade squamous intraepithelial lesion (LGSIL) (06/08/13) Right lateral epicondylitis (08/20/15) Right elbow tendonitis Pneumonia in 01/10 Mitral valve prolapse followed by [facility] Cardiology. GERD (gastroesophageal reflux disease) Abnormal Pap smear of cervix Hx of CKC in [place] prior to 2007. Result CIN1. 2012 LEEP @ [facility]. PAP: LGSIL 2010,2011 x2, 2015. HPV: Neg. Postmenopausal HRT (hormone replacement therapy) 2007 OCPs for irreg menses. VMS after stopping OCPs 2010 HRT for postmenopausal VMS. Colitis Surgical History History of colonoscopy (~10/2022) History of hand surgery S/P uvulopalatopharyngoplasty S/P UPPP (uvulopalatopharyngoplasty) (02/19/18) R elbow surgery Rx for tendenitis. Social History Smoking/Tobacco Use Status: Never Smoking risk assessment performed?: Yes Alcohol Intake: current Alcohol Intake frequency: a few times a week Drug use: Never Substance use type: does not use Household members: other Details: in 2018. 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 Pets and animals: Yes (Shon Heredia) Sexually active: No What is your relationship status?: Panel score (0-1 are the most socially isolated patients): 0 What type of physical activity do you participate in: none and independent ambulation Seatbelt use: always Do you feel safe at home: Yes (pt lives alone) History History 0 Para Hx # Term Pregnancies Multiple births Hx # Pregnancies Ectopic pregnancies AB induced Hx Number of Living Children AB spontaneous Meds Allergies and Home Medications Allergies Allergy/AdvReac Type Severity Reaction Status Date / Time amoxicillin Allergy Severe Hives Verified 01/07/24 11:43 codeine AdvReac Intermediate feel like Verified 01/07/24 11:43 things sre crawing on my skin hydrocodone [From Vicodin] AdvReac Intermediate Nausea Verified 01/07/24 11:43 Home Medications Medication Instructions Recorded Confirmed Type omeprazole 10 mg capsule,delayed 20 mg PO DAILY 06/08/13 01/07/24 History release fish, borage, flaxseed oils-omega 400 mg PO DAILY 07/14/16 01/07/24 History 3,6,9 cb #1 400 mg-400 mg-400 mg cap ([place] 3-6-9 Complex) multivitamin (Daily Multi-Vitamin 1 ea PO DAILY 07/14/16 01/07/24 History tablet) atorvastatin 20 mg tablet (Lipitor) 20 mg PO HS 01/05/17 01/07/24 History calcium carbonate 1,000 mg-vitamin 1 tab PO DAILY 02/28/19 01/07/24 History D3 20 mcg (800 unit) tablet alprazolam 0.25 mg tablet (Xanax) 0.25 mg PO PRN 10/28/19 01/07/24 History loratadine 10 mg tablet 10 mg PO DAILY PRN 10/28/19 01/07/24 History rivaroxaban 20 mg tablet (Xarelto) 20 mg PO DAILY #90 tab-caps 10/28/19 01/07/24 Rx albuterol sulfate 90 mcg/actuation 2 puff inhalation Q6H PRN 01/10/22 01/07/24 History aerosol inhaler (Ventolin HFA) metoprolol tartrate 25 mg tablet 12.5 mg (1/2 x 25 mg) PO BID PRN 04/18/22 01/07/24 Rx paroxysmal atrial fibrillation #90 tabs metoprolol succinate 25 mg capsule 25 mg PO DAILY #30 caps 01/05/24 01/07/24 Rx sprinkle, ext. release 24 hr Exam Narrative Exam Narrative: General: Well-appearing in no acute distress speaking in complete sentences. Head: Normocephalic, atraumatic. Eye: Extraocular eye movements intact. No conjunctival injection. No scleral icterus. Ear, nose, mouth, throat: Grossly normal inspection. Normal voice, handling secretions normally. Neck: Trachea midline. Cardiovascular: Well-perfused distal extremities. Irregular irregular rhythm. Respiratory: Nonlabored respiration. Clear lungs bilaterally. Gastrointestinal: Nondistended abdomen. Soft nontender. Musculoskeletal: No lower extremity edema. Moving all 4 extremities spontaneously. Skin: Normal for age and race, grossly normal temperature and turgor. No acute rash. Neurologic: Alert and appropriate, no apparent acute deficits. Results Labs 01/07/24 11:50 01/07/24 11:50 Labs: Laboratory Results - last 24 hr 01/07/24 01/07/24 11:50 14:38 WBC 6.86 RBC 4.21 Hgb 13.1 Hct 40.0 MCV 95 MCH 31.1 MCHC 32.8 RDW 13.2 Plt Count 285 MPV 9.7 Immature Gran % 0.3 Neutrophils % 69.7 Lymphocytes % 20.8 Monocytes % 7.7 Eosinophils % 0.9 Basophils % 0.6 Nucleated RBC % 0.0 Absolute Neutrophils 4.78 Absolute Lymphocytes 1.43 Absolute Monocytes 0.53 Absolute Eosinophils 0.06 Absolute Basophils 0.04 PT 11.2 H INR 1.1 Sodium 143 Potassium 4.0 Chloride 106 Carbon Dioxide 25.6 Anion Gap 11.4 H BUN 16 Creatinine 0.8 Est GFR (CKD-EPI 2020) 81.21 Glucose 109 H Calcium 8.9 Magnesium 2.3 Total Bilirubin 0.3 AST 26 ALT 84 H Alkaline Phosphatase 129 H Troponin I < 50 < 50 NT-Pro-B Natriuret Pep 3052 H Total Protein 7.3 Albumin 4.1 TSH 2.11 Last Vital Signs Temp 36.4 C L 01/07/24 15:20 Pulse 98 H 01/07/24 15:20 Resp 18 01/07/24 15:20 BP 108/74 01/07/24 15:20 Pulse Ox 97 01/07/24 15:20 Time Spent Time spent with Patient: 55-74 minutes Time was spent: preparing to see the patient(eg.review tests), obtaining and/or reviewing separately otained hiistory, ordering medications,tests, procedures, referring, communicating with other health toddler caregiver, indepentently interpreting results, counseling the patient and care coordination
[2024-01-07] MEDS: Rivaroxaban 10 MG TABLET 20 MG PO (17:19)
[2024-01-07] MEDS: dilTIAZem 25 MG/5 ML VIAL 15 MG IVP (18:14)
[2024-01-07] MEDS: Atorvastatin 20 MG TAB PO (20:32)
[2024-01-08] VITALS (14 sets, daily range): BP systolic 77–110; BP diastolic 51–86; PULSE 55–89; RESP 15–18; TEMP 36.3–36.8; O2SAT 93–97; BMI 23.8
[2024-01-08] MEDS: Metoprolol 12.5 MG TAB PO ×2 (00:06→05:45)
[2024-01-08 06:50] LABS: HCT 38.7 % (36.0-46.0); HGB 12.7 g/dL (11.2-15.7); MCH 31.2 pg (27.0-33.0); MCHC 32.8 % (32.0-36.0); MCV 95 fL (80-95); MPV 9.8 fL (8.0-11.0); Platelet Count 267 10^3/uL (130-400); RBC 4.07 10^6/uL (3.93-5.22); RDW 13.1 % (11.7-14.6); RDW-SD 45.6 fL
[2024-01-08 07:18] LABS: ALT 62 U/L (14-59); AST 17 U/L (15-37); Albumin 3.6 g/dL (3.4-5.0); Alkaline Phosphatase 113 U/L (46-116); Anion Gap 9.9 mmol/L (3-11); BUN 16 mg/dL (7-18); Bilirubin, Total 0.4 mg/dL (0.2-1.0); CO2 24.1 mmol/L (21.0-32.0); CREATININE 0.7 mg/dL (0.55-1.02); Calcium 8.6 mg/dL (8.5-10.1); Chloride 109 mmol/L (98-107); Estimated GFR 95.32 (mL/min/1.73m2); Glucose 109 mg/dL (74-106); Magnesium 2.4 mg/dL (1.8-2.4); Sodium 143 mmol/L (136-145); Total Protein 6.7 g/dL (6.4-8.2)
[2024-01-08] MEDS: Omeprazole 20 MG CAPCR PO (07:42)
--- NOTE | 2024-01-08 09:22 | PDOC.CMIN ---
Date of service: 01/08/24 Time of Service: 09:23 Care Management Initial Assmt Initial Assessment REASON FOR HOSPITALIZATION:: Atrial fibrillation with RVR PREVIOUS FUNCTIONAL STATUS/SOCIAL/FAMILY SUPPORTS:: Ayanna lives alone in [place] with her menendez retriever. 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 Ayanna is independent at baseline and does not receive any community services. CURRENT FUNCTIONAL STATUS:: Ayanna was sitting up on her bed when CM met with her. She was very pleasant and engaged easily with CM. Ayanna informed CM that she is being discharged soon and denied the need for any services. ADVANCE DIRECTIVES:: On file. Miko Clifford, [id number] [facility] Has patient been provided with info about the portal/API?: Yes Did the patient sign up for the portal?: No CODE STATUS:: Full Code INSURANCE COVERAGE / FINANCIAL ISSUES:: [employer] CURRENT HOME/COMMUNITY SERVICES/EQUIPMENT:: none PRIMARY CARE PHYSICIAN:: Catherine Green POTENTIAL DISCHARGE NEEDS:: follow up with PCP, Cardiology and plan of care PATIENT/FAMILY EDUCATION NEEDS:: Review of discharge instructions, activity, limitations, follow up plan, discuss Ask Me Three TRANSPORTATION:: via private vehicle with friend/family PLAN:: Anticipate Ayanna will be discharged home with no new services. She will follow up with her PCP, Clarifier and plan of care and transport with friend/family. CM will continue to support Ayanna and her discharge planning needs. PFSH All Active Problems (Updated 01/07/24 @ 14:21 by Hi Chirinos MD) Elevated brain natriuretic peptide (BNP) level (Acute) Atrial fibrillation with RVR (Acute) A-fib (Chronic) Inflammatory polyps (Acute) Paroxysmal atrial fibrillation (Acute 02/19/18) Mitral valve prolapse (Acute 07/16/17) History of sleep apnea (Acute 02/19/18) Gastroesophageal reflux disease without esophagitis (Acute 07/16/17) Colitis (Acute 07/16/17) Screening for colon cancer (Acute) Collagenous colitis (Acute) Medical History Adenomatous colon polyp Vitamin D deficiency Osteopenia Anxiety Ganglion cyst of finger of right hand Trigger finger Injection: 03/28/2019 De Quervain's tenosynovitis Left - injection: 03/28/2019 Hyperlipidemia, mixed History of sleep apnea Paroxysmal atrial fibrillation History of postmenopausal HRT (07/10/15) Low grade squamous intraepithelial lesion on cytologic smear of cervix (LGSIL) (07/16/17) CIN1 on [facility] in [place], prior to 2007. LGSIL -2010,2011 x2, 2015. Neg HPV with all Paps. 2013 - LEEP 02/28/2019. Colpo with ECC: Negative dysplasia. Patient will have a repeat Pap in 1 year Papanicolaou smear of cervix with low grade squamous intraepithelial lesion (LGSIL) (06/08/13) Right lateral epicondylitis (08/20/15) Right elbow tendonitis Pneumonia in 01/10 Mitral valve prolapse followed by [facility] Cardiology. GERD (gastroesophageal reflux disease) Abnormal Pap smear of cervix Hx of CKC in [place] prior to 2007. Result CIN1. 2012 LEEP @ [facility]. PAP: LGSIL 2010,2011 x2, 2015. HPV: Neg. Postmenopausal HRT (hormone replacement therapy) 2007 OCPs for irreg menses. VMS after stopping OCPs 2009 HRT for postmenopausal VMS. Colitis Surgical History History of colonoscopy (~10/2022) History of hand surgery S/P uvulopalatopharyngoplasty S/P UPPP (uvulopalatopharyngoplasty) (02/19/18) R elbow surgery Rx for tendenitis. Social History Smoking/Tobacco Use Status: Never Smoking risk assessment performed?: Yes Alcohol Intake: current Alcohol Intake frequency: a few times a week Drug use: Never Substance use type: does not use Household members: other Details: in 2018. 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 Pets and animals: Yes (Menendez retreiver Peaches) Sexually active: No What is your relationship status?: Panel score (0-1 are the most socially isolated patients): 0 What type of physical activity do you participate in: none and independent ambulation Seatbelt use: always Do you feel safe at home: Yes (pt lives alone) History History 0 Para Hx # Term Pregnancies Multiple births Hx # Pregnancies Ectopic pregnancies AB induced Hx Number of Living Children AB spontaneous SDOH(Care Management) Screening Will the Patient Participate in the Screening?: Yes Do you worry about having a steady place to live?: no Problems where you live: no known problems In the past 12 months, have you had to go without electric, gas, oil or water in your home?: no Have you or anyone in your house had to go without enough food to eat?: no Has lack of transportation kept you from medical appointments or from doing things needed for daily living?: no Has anyone in your support network made you feel unsafe for any reason?: no
--- NOTE | 2024-01-08 10:10 | W.ANESPRE ---
General Info Date of Service Date Performed: 01/08/24 Height: 5 ft 6 in Weight: 67.132 kg Body Mass Index (BMI): 23.8 Surgical Procedure: Operation Date: 01/08/24 13:00 Proposed Procedure Side Surgeon p Cardioversion Alma Camejo MD Meds Allergies and Home Medications Allergies Allergy/AdvReac Type Severity Reaction Status Date / Time amoxicillin Allergy Severe Hives Verified 01/07/24 11:43 codeine AdvReac Intermediate feel like Verified 01/07/24 11:43 things sre crawing on my skin hydrocodone [From Vicodin] AdvReac Intermediate Nausea Verified 01/07/24 11:43 Home Medication Medication Instructions Recorded omeprazole 10 mg capsule,delayed 20 mg PO DAILY 06/08/13 release fish, borage, flaxseed oils-omega 400 mg PO DAILY 07/14/16 3,6,9 cb #1 400 mg-400 mg-400 mg cap (Llano 3-6-9 Complex) multivitamin (Daily Multi-Vitamin 1 ea PO DAILY 07/14/16 tablet) atorvastatin 20 mg tablet (Lipitor) 20 mg PO HS 01/05/17 calcium carbonate 1,000 mg-vitamin 1 tab PO DAILY 02/28/19 D3 20 mcg (800 unit) tablet alprazolam 0.25 mg tablet (Xanax) 0.25 mg PO PRN 10/28/19 loratadine 10 mg tablet 10 mg PO DAILY PRN 10/28/19 rivaroxaban 20 mg tablet (Xarelto) 20 mg PO DAILY #90 tab-caps 10/28/19 albuterol sulfate 90 mcg/actuation 2 puff inhalation Q6H PRN 01/10/22 aerosol inhaler (Ventolin HFA) metoprolol tartrate 25 mg tablet 12.5 mg (1/2 x 25 mg) PO BID PRN 04/18/22 paroxysmal atrial fibrillation #90 tabs metoprolol succinate 25 mg capsule 25 mg PO DAILY #30 caps 01/05/24 sprinkle, ext. release 24 hr Current Visit Medications: Current Medications Generic Name Dose Route Start Last Admin Trade Name Freq PRN Reason Stop Dose Admin Acetaminophen 0 mg 01/07/24 15:08 Acetaminophen 325 Mg Tab PO Q4H PRN PRN Albuterol Sulfate 2 puff 01/07/24 15:08 Albuterol Hfa 8 Gm 60 Puff Inh IH Q6H PRN PRN Alprazolam 0.25 mg 01/07/24 15:08 Alprazolam 0.25 Mg Tab PO HS PRN PRN Atorvastatin Calcium 20 mg 01/07/24 20:00 01/07/24 20:32 Atorvastatin 20 Mg Tab PO 20 mg HS DILMA Administration Device 1 each 01/07/24 15:08 Inhaler, Assist Device [facility] DIRECTED DILMA Loratadine 10 mg 01/07/24 15:08 Loratidine 10 Mg Tab PO DAILY PRN PRN Metoprolol Tartrate 12.5 mg 01/08/24 00:00 01/08/24 05:45 Metoprolol 12.5 Mg Tab PO 12.5 mg Q6H DILMA Administration Omeprazole 20 mg 01/08/24 07:30 01/08/24 07:42 Omeprazole 20 Mg Capcr PO 20 mg DAILY@0730 DILMA Administration Polyethylene Glycol 17 gm 01/07/24 15:08 Polyethylene Glycol 3350 17 Gm Packet PO DAILY PRN PRN Constipation Rivaroxaban 20 mg 01/07/24 17:00 01/07/24 17:19 Rivaroxaban 10 Mg Tablet PO 20 mg DAILY@1700 [facility] Administration PFSH Active Problems Active Problems: Problem Status Onset Code Elevated brain natriuretic peptide (BNP) level R79.89 Atrial fibrillation with RVR I48.91 A-fib I48.91 Inflammatory polyps Paroxysmal atrial fibrillation 02/19/18 I48.0 Mitral valve prolapse 07/16/17 I34.1 History of sleep apnea 02/19/18 Z86.69 Gastroesophageal reflux disease without esophagitis 07/16/17 K21.9 Colitis 07/16/17 K52.9 Screening for colon cancer Z12.11 Collagenous colitis K52.831 Medical History Medical History Adenomatous colon polyp Vitamin D deficiency Osteopenia Anxiety Ganglion cyst of finger of right hand Trigger finger Injection: 03/28/2019 De Quervain's tenosynovitis Left - injection: 03/28/2019 Hyperlipidemia, mixed History of sleep apnea Paroxysmal atrial fibrillation History of postmenopausal HRT (07/10/15) Low grade squamous intraepithelial lesion on cytologic smear of cervix (LGSIL) (07/16/17) CIN1 on [facility] in [place], prior to 2007. LGSIL -2010,2011 x2, 2015. Neg HPV with all Paps. 2013 - LEEP 02/28/2019. Colpo with ECC: Negative dysplasia. Patient will have a repeat Pap in 1 year Papanicolaou smear of cervix with low grade squamous intraepithelial lesion (LGSIL) (06/08/13) Right lateral epicondylitis (08/20/15) Right elbow tendonitis Pneumonia in 01/10 Mitral valve prolapse followed by [facility] Cardiology. GERD (gastroesophageal reflux disease) Abnormal Pap smear of cervix Hx of [facility] in [place] prior to 2007. Result CIN1. 2012 LEEP @ [facility]. PAP: LGSIL 2010,2011 x2, 2015. HPV: Neg. Postmenopausal HRT (hormone replacement therapy) 2007 OCPs for irreg menses. VMS after stopping OCPs 2009 HRT for postmenopausal VMS. Colitis Medical History Comments:: 11/04/22 History of PONV, pt reports helpful to have some Zofran. Surgical History Surgical History History of colonoscopy (~10/2022) History of hand surgery S/P uvulopalatopharyngoplasty S/P UPPP (uvulopalatopharyngoplasty) (02/19/18) R elbow surgery Rx for tendenitis. Tobacco Smoking/Tobacco Use Status: Never Alcohol Alcohol Intake: current Alcohol intake frequency: a few times a week Substance Use Substance use: Never Substance use type: does not use Prental History History 0 Para Hx # Term Pregnancies Multiple births Hx # Pregnancies Ectopic pregnancies AB induced Hx Number of Living Children AB spontaneous Vital Signs and Lab Results Vital Signs Most Recent Vital Signs in EMR: Most Recent Vital Signs Temp Pulse Resp BP Pulse Ox 36.6 C 89 16 106/82 96 01/08/24 04:34 01/08/24 07:29 01/08/24 07:29 01/08/24 07:29 01/08/24 07:29 Lab Results 01/08/24 06:15 01/08/24 06:15 Blood Type / Crossmatch: No Data to Display Complete Blood Count: White Blood Count 6.30 10^3/uL (4.4-10.8) 01/08/24 06:15 Red Blood Count 4.07 10^6/uL (3.93-5.22) 01/08/24 06:15 Hemoglobin 12.7 g/dL (11.2-15.7) 01/08/24 06:15 Hematocrit 38.7 % (36.0-46.0) 01/08/24 06:15 Platelet Count 267 10^3/uL (130-400) 01/08/24 06:15 Complete Metabolic Panel: Sodium 143 mmol/L (136-145) 01/08/24 06:15 Potassium 4.0 mmol/L (3.5-5.1) 01/08/24 06:15 Chloride 109 mmol/L (98-107) H 01/08/24 06:15 Carbon Dioxide 24.1 mmol/L (21.0-32.0) 01/08/24 06:15 BUN 16 mg/dL (7-18) 01/08/24 06:15 Creatinine 0.7 mg/dL (0.55-1.02) 01/08/24 06:15 Est GFR (CKD-EPI 2020) 95.32 (mL/min/1.73m2) 01/08/24 06:15 Magnesium 2.4 mg/dL (1.8-2.4) 01/08/24 06:15 Calcium 8.6 mg/dL (8.5-10.1) 01/08/24 06:15 Albumin 3.6 g/dL (3.4-5.0) 01/08/24 06:15 Glucose 109 mg/dL (74-106) H 01/08/24 06:15 Liver Function Panel: Alanine Aminotransferase (ALT/SGPT) 62 U/L (14-59) H 01/08/24 06:15 Aspartate Amino Transf (AST/SGOT) 17 U/L (15-37) 01/08/24 06:15 Coagulation Panel: INR International Normalized Ratio 1.1 (0.9-1.1) 01/07/24 11:50 Prothrombin Time 11.2 sec (9.1-11.1) H 01/07/24 11:50 Activated Partial Thromboplast Time 26.7 sec (23.6-32.8) 01/04/24 16:55 D-Dimer 1159 ng/mlFEU (<500) H 01/05/24 11:15 Cardiac Panel: Troponin I < 50 ng/L (< or =60) 01/07/24 NT-Pro-B Natriuret Pep 3052 pg/mL (<300) H 01/07/24 Arterial Blood Gas: No Data to Display Venous Blood Gas: No Data to Display Pancreas Panel: No Data to Display Thyroid Panel: Thyroid Stimulating Hormone (TSH) 2.11 uIU/Ml (0.36-3.74) 01/07/24 11:50 Infectious Disease: No Data to Display Blood Cultures: No Data to Display Toxicology Panel: No Data to Display Imaging and Studies Imaging and Studies Study information below may be from another EMR and interpreted by another provider. Please see original notes in EMR for more complete details. EKG Summary: DATE/TIME OF SERVICE: 01/07/24 1143 : 1955 PERFORMING LOCATION: [place] APPROVED REPORT Exam: Resting ECG Reason for Exam: Chest Pain Patient Location: HR:143 bpm ECG Measurements Heart Rate 143 AXIS ID [id number] P [id number] QRSd 80 QRS 51 QT 297 T29 QTc 459 Conclusion Atrial fibrillation RVR Echocardiogram Summary: Date of Exam: 01/20/23 Sex: F Admission Date: 01/20/23 : 1955 Age: 67 APPROVED REPORT EXAM: Comprehensive 2D, Doppler, and color-flow Echocardiogram Patient Location: Out-Patient Engineering Program Analyst: Bro Thakur RDMS, RVT Indications: Mitral Valve prolapse, Paroxysmal atrial fibrillation Other Information Study Quality: Adequate Conclusion Normal left ventricular wall thickness and chamber size. Ejection fraction is 60 to 65%. Wall motion is normal Both atria are normal in size Normal right ventricular size and systolic function Aortic valve is sclerotic and trileaflet without stenosis or regurgitation Mildly thickened mitral leaflets with mild systolic prolapse. There is trace to mild mitral regurgitation Normal tricuspid valve with trace to mild regurgitation. Estimated right ventricular systolic pressure is 22 mmHg Date of study: 08/04/2017 Transthoracic Echocardiography M-mode, complete 2D, complete spectral Doppler, and color Doppler *STUDY CONCLUSIONS* Summary: 1. Left ventricle: The cavity size was normal. Wall thickness was normal. Systolic function was normal. The estimated ejection fraction was 55-60%. Wall motion was normal; there were no regional wall motion abnormalities. 2. Mitral valve: Moderate thickening of the anterior leaflet, consistent with myxomatous proliferation. Late systolic systolic bowing without prolapse, involving the anterior leaflet. There was no significant regurgitation. 3. Right ventricle: The cavity size was normal. Wall thickness was normal. Systolic function was normal. Anesthesia Assessment and Plan Anesthesia History Personal History: PONV Family History: No Family History of Anesthesia Complications Exercise Tolerance Exercise Tolerance: Metabolic Equivalents>4 Pertinent Negatives Pertinent Negatives: No Symptoms of GERD, No Major Pulmonary Symptoms or Complaints and No History of CVA/TIA Cardiac & Pulmonary Exam Cardiac Exam: Normal S1/S2 Heart Sounds Pulmonary Exam: Clear Bilateral Breath Sounds Implantable Cardiac Device Does patient have a Pacemaker or an ICD?: No Airway Exam Known Difficult Airway: No Mallampati Class: 1 Mouth Opening: Normal (> 3cm) Thyromental Distance: Greater than 3 cm Neck Range of Motion: Full ROM Neck Circumference: Normal Teeth Condition: Normal Dentition ASA Classification ASA Score: ASA 3 Emergency Case?: No NPO Status NPO Status: NPO Clears >2 hours, Solids >8 hours Anesthesia Plan Resuscitation Status: Full Code Anesthesia Technique: General Anesthesia Airway Planned: Natural Airway Monitors Used: Standard Monitors
[2024-01-08] MEDS: Ondansetron 4 MG/2 ML VIAL IVP (12:01)
[2024-01-08] MEDS: Lactated Ringers 1,000 ML 30 ML IV (13:20)
--- NOTE | 2024-01-08 13:37 | W.CARDVER ---
Date of service: 01/08/24 Time of Service: 13:37 Cardioversion DATE OF PROCEDURE: 01/08/24 PRE-OP DIAGNOSES: atrial fibrillation POST-OP DIAGNOSES: same Indications: Atrial fibrillation, uncontrolled rate, symptomatic Procedure Description: Synchronized cardioversion After informed consent for the procedure was obtained, the patient was taken to the operating room where she was connected to telemetry monitoring, anterior and posterior Zoll pads. she was sedated under the direction of anesthesia department. When adequate sedation was obtained the patient had a synchronized shock at 150 W seconds.. atrial fibrillation persisted and she had 2 subsequent shocks each at 200 W seconds. Sinus rhythm then at a rate of 80 was noted. Atrial premature beats occurred. Patient will be taken to the recovery area until she becomes fully awake. An electrocardiogram will be done and she will return to the telemetry floor She should be continued on metoprolol succinate. I would recommend a dose of 50 mg daily. If she remains stable she could be discharged as per direction of the hospitalist and seen in cardiology clinic in approximately 2 weeks.
--- NOTE | 2024-01-08 13:52 | W.ANESPOSTOP ---
Postoperative Evaluation Date, Time and Location Date Performed: 01/08/24 Time Performed: 13:52 Patient Location: PACU Vital Signs Most Recent Imported Vital Signs: Most Recent Vital Signs Temp Pulse Resp BP Pulse Ox 36.5 C 66 18 103/86 97 01/08/24 11:12 01/08/24 11:12 01/08/24 11:12 01/08/24 11:12 01/08/24 11:12 Pain Score Most Recent Pain Score: Most Recent Pain Score Pain Level 0 01/08/24 11:12 Assessment Mental Status: Awake (Alert & Oriented to Patient Baseline) Airway and Respiratory Function: Patent airway with normal (patient baseline) respiratory exam Cardiovascular Function: Hemodynamically Stable Hydration Status: Adequately Hydrated Nausea & Vomiting: No Nausea or Vomiting Pain: Pt. Denies Any Pain Peripheral Nerve Block: Patient did not receive a nerve block
--- NOTE | 2024-01-08 14:53 | CHAPLAIN ---
Ayanna was resting in bed when I visited. She said she'd had some anxious moments and is hoping to go home later today. She is a and had found a friend in another and they rely on each other for rides and caring for each other's dogs, so this friend will be picking her up.
--- NOTE | 2024-01-08 15:50 | W.CARDVER ---
Date of service: 01/08/24 Time of Service: 15:50 Cardioversion DATE OF PROCEDURE: 01/08/24 PRE-OP DIAGNOSES: Atrial fibrillation POST-OP DIAGNOSES: same Indications: Symptomatic paroxysmal atrial fibrillation with uncontrolled rate Procedure Description: Synchronized cardioversion Patient was sedated under the direction of the anesthesia department. She had anterior and posterior ZOLL pads placed. When adequate sedation was achieved she had an initial synchronized shock at 150 W seconds. Atrial fibrillation persisted. She had 2 additional subsequent shocks each 200 W seconds with eventual return of sinus rhythm at 80 bpm. She was taken to the recovery area. I would recommend initiation of metoprolol succinate 50 mg daily. She should be seen in clinic in approximately 2 weeks
--- NOTE | 2024-01-08 17:06 | DSE_ITS ---
Date of service: 01/08/24 Time of Service: 17:12 DS: Diagnosis Discharge Diagnosis (1) Atrial fibrillation with RVR: Status: Acute Asessment and Plan: s/p cardioversion, now in NSR, plan to increase BB from 25 daily to 50 mg daily Discharge Plan Disposition Patient Disposition: Home Condition: Stable Discharge Details Reason For Visit: Paroxysmal Atrial Fibrillation Admit Date/Time: 01/07/24 14:11 Admit Provider: Alberto Mccarty Attending Provider: Alberto Mccarty Primary Care Provider: Catherine Green [facility] Hospital Course Hospital Course: This is a 68-year-old female patient past medical history significant for mitral valve prolapse who presented to the emergency department with chest pain shortness of breath found to be in A-fib with RVR. She has been anticoagulated on rivaroxaban. She was admitted for rate control and plan for electrical cardioversion. She remained medically stable serial troponins negative she underwent cardioversion as planned. Postprocedure uneventful she remained in sinus rhythm with no new complaints. Plan is to discharge home on increased dose of Metroprolol succinate. She will follow-up outpatient with cardiology as planned she is discharged to home with no new services discharge discussed with Dr. Martinez Home Meds and New Rx's Prescriptions: Continued Xarelto 20 mg tablet 20 mg PO DAILY Qty: 90 6RF Hold Instructions: Resume on 11/05/22. omeprazole 10 MG capsule,delayed release(DR/EC) 20 mg PO DAILY multivitamin [Daily Multi-Vitamin] 1 EACH tablet 1 ea PO DAILY fish,bora,flax oils-om3,6,9no1 [Merrick 3-6-9 Complex] 400 MG capsule 400 mg PO DAILY Patient Comments: Takes this three times a week calcium carbonate-vitamin D3 1,000 mg(2,500 mg)-800 unit tablet 1 tab PO DAILY alprazolam [Xanax] 0.25 mg tablet 0.25 mg PO PRN Patient Comments: loratadine 10 mg tablet 10 mg PO DAILY PRN albuterol sulfate [Ventolin HFA] 90 mcg/actuation HFA aerosol inhaler 2 puff inhalation Q6H PRN metoprolol tartrate 25 mg tablet 12.5 mg PO BID PRN (Reason: paroxysmal atrial fibrillation) Qty: 90 5RF atorvastatin [Lipitor] 20 MG tablet 20 mg PO HS Changed metoprolol succinate 25 mg capsule,sprinkle,ER 24hr 50 mg PO HS Qty: 60 0RF Discharge Instructions Instructions: A-fib (Atrial Fibrillation) (DC), Cardioversion (DC) Stand Alone Forms: Nursing Discharge Form Referrals: Catherine Green [Primary Care Provider] - 01/20/24 11:00 am (arrive at 1045 please ) Activity:: Activity as Tolerated Equipment/Supplies:: No Equipment Needed Diet:: As Tolerated Discharge Orders Discharge Orders: Discharge Order (Routine); Ordered 01/08/24 Ordered By: Gale Raman Discharge Data Discharge Date/Time-TO BE ENTERED AT DEPARTURE: 01/08/24 18:00 DS: Summary Time Spent with Patient providing and/or coordinating discharge services: Less than 30 minutes Status at Discharge Functional status at discharge: independent ambulation Overall status at discharge: patient is back to baseline Mental Status: mental status grossly normal Speech and Movement: speech and movement normal Mood: congruent mood Affect: normal affect Quality:SDOH Health Related Social Needs: Health related social needs risk of homeless Exam Const General: cooperative, comfortable and no acute distress Nutritional Appearance: average body habitus HENMT Head: normal to inspection, normocephalic and atraumatic Mouth: oral mucosae normal Eyes General: appearance normal, both eyes and all related structures Chest Chest: normal inspection of the chest Resp Effort & Inspection: normal respiratory effort Auscultation: clear to auscultation bilaterally Cardio Rate: regular rate (Normal sinus rhythm post cardioversion) Rhythm: regular rhythm GI Inspection: normal to inspection Palpation: soft Skin General skin exam: no rashes or lesions noted Neuro General: patient alert, patient awake and patient oriented x3 Extrem General: normal to inspection and full ROM Psych Mental Status: mental status grossly normal Speech and Movement: speech and movement normal Mood: congruent mood Affect: normal affect DS: Data Vitals/I&O Vitals and I&O: Vital Signs Temperature 36.6 C 01/08/24 16:01 Temperature Source Tympanic 01/08/24 16:01 Pulse 81 01/08/24 16:01 Pulse Rhythm Regular 01/08/24 15:46 Pulse 92 H 01/07/24 13:20 Respiratory Rate 16 01/08/24 16:01 Respiratory Effort Normal, Non-Labored 01/08/24 15:46 Respiratory Depth Normal 01/08/24 15:46 Respiratory Pattern Normal 01/08/24 15:46 Blood Pressure 110/70 01/08/24 16:01 Blood Pressure Mean 71 01/07/24 14:26 Blood Pressure Position Sitting 01/07/24 14:26 Pulse Oximetry 93 01/08/24 16:01 Oxygen Delivery Method Room Air 01/08/24 16:01 Oxygen Flow Rate 0 01/08/24 16:01 Pain Level 0 01/08/24 16:01 Comment Pulse and BP assessed after 15 mg diltiazem IVP 01/07/24 18:25 Intake & Output 01/07/24 01/08/24 01/08/24 23:59 11:59 23:59 Intake Total 550 / 550 Balance 550 / 550 Weight 67.132 kg 67.132 kg Intake: IV 350 / 350 Oral 200 / 200 Other: Urine Color Yellow Urine Appearance Clear Clear Clear Comment patient voided in toilet pt reports she has voided pt independent in the bathroom Stool Size Moderate Emesis Description None Voiding Methods Toilet Data Completed and Pending Labs on day of discharge: Labs from last 24 hours 01/08/24 06:15 WBC 6.30 RBC 4.07 Hgb 12.7 Hct 38.7 MCV 95 MCH 31.2 MCHC 32.8 RDW 13.1 Plt Count 267 MPV 9.8 Sodium 143 Potassium 4.0 Chloride 109 H Carbon Dioxide 24.1 Anion Gap 9.9 BUN 16 Creatinine 0.7 Est GFR (CKD-EPI 2020) 95.32 Glucose 109 H Calcium 8.6 Magnesium 2.4 Total Bilirubin 0.4 AST 17 ALT 62 H Alkaline Phosphatase 113 Total Protein 6.7 Albumin 3.6 PFSH All Active Problems (Updated 01/09/24 @ 00:01 by SALINAS WHITE) Elevated brain natriuretic peptide (BNP) level (Acute) Atrial fibrillation with RVR (Acute) A-fib (Chronic) Inflammatory polyps (Acute) Paroxysmal atrial fibrillation (Acute 02/19/18) Mitral valve prolapse (Acute 07/16/17) History of sleep apnea (Acute 02/19/18) Gastroesophageal reflux disease without esophagitis (Acute 07/16/17) Colitis (Acute 07/16/17) Screening for colon cancer (Acute) Collagenous colitis (Acute) Medical History Adenomatous colon polyp Vitamin D deficiency Osteopenia Anxiety Ganglion cyst of finger of right hand Trigger finger Injection: 03/28/2019 De Quervain's tenosynovitis Left - injection: 03/28/2019 Hyperlipidemia, mixed History of sleep apnea Paroxysmal atrial fibrillation History of postmenopausal HRT (07/10/15) Low grade squamous intraepithelial lesion on cytologic smear of cervix (LGSIL) (07/16/17) 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 LGSIL -2010,2011 x2, 2015. Neg HPV with all Paps. 2013 - LEEP 02/28/2019. Colpo with ECC: Negative dysplasia. Patient will have a repeat Pap in 1 year Papanicolaou smear of cervix with low grade squamous intraepithelial lesion (LGSIL) (06/08/13) Right lateral epicondylitis (08/20/15) Right elbow tendonitis Pneumonia in 01/10 Mitral valve prolapse followed by [facility] Cardiology. GERD (gastroesophageal reflux disease) Abnormal Pap smear of cervix Hx of CKC in [place] prior to 2007. Result CIN1. 2012 LEEP @ [facility]. PAP: LGSIL 2010,2011 x2, 2015. HPV: Neg. Postmenopausal HRT (hormone replacement therapy) 2007 OCPs for irreg menses. VMS after stopping OCPs 2009 HRT for postmenopausal VMS. Colitis Surgical History History of colonoscopy (~10/2022) History of hand surgery S/P uvulopalatopharyngoplasty S/P UPPP (uvulopalatopharyngoplasty) (02/19/18) R elbow surgery Rx for tendenitis. Social History Smoking/Tobacco Use Status: Never Smoking risk assessment performed?: Yes Alcohol Intake: current Alcohol Intake frequency: a few times a week Drug use: Never Substance use type: does not use Household members: other Details: in 2018. 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 Pets and animals: Yes (Menendez retreiver Peaches) Sexually active: No What is your relationship status?: Panel score (0-1 are the most socially isolated patients): 0 What type of physical activity do you participate in: none and independent ambulation Seatbelt use: always Do you feel safe at home: Yes (pt lives alone) History History 0 Para Hx # Term Pregnancies Multiple births Hx # Pregnancies Ectopic pregnancies AB induced Hx Number of Living Children AB spontaneous Time Spent with Patient Time Spent with Patient: <45 minutes Time was spent: preparing to see the patient(eg.review tests), obtaining and/or reviewing separately otained hiistory, ordering medications,tests, procedures, indepentently interpreting results and counseling the patient
== END 2024-01-08 18:00 | disposition home or self-care (01) ==
LOC: ER 14:21 → MS 01-08 07:45
PROVIDERS: Internal Medicine Cardiovascular Disease; Nurse Practitioner Family; Admitting Provider Internal Medicine; Emergency Provider Emergency Medicine; PCP Family Medicine; Visit Provider Internal Medicine
PROC: 5A2204Z Restoration of Cardiac Rhythm, Single (ICD-10-PCS; CPT 92960; principal; 2024-01-08 13:00)
DX: I48.0 Paroxysmal atrial fibrillation (principal); M34.0 Progressive systemic sclerosis; Z79.899 Other long term (current) drug therapy; G47.30 Sleep apnea, unspecified; K21.9 Gastro-esophageal reflux disease without esophagitis; K52.831 Collagenous colitis; E55.9 Vitamin D deficiency, unspecified; M85.80 Other specified disorders of bone density and structure, unspecified site; F41.9 Anxiety disorder, unspecified; E78.5 Hyperlipidemia, unspecified; R06.02 Shortness of breath; R07.89 Other chest pain; R79.89 Other specified abnormal findings of blood chemistry
CPT/HCPCS: 92960; 00123; 36415; 80053; 85027; 93005; 96374; 96375; 96376; 99291; 71045; 83735; 83880; 84443; 84484; 85025; 85610; 93010; 99223; 99238; G0378; J2001; J2371; J2405; J2704; J3490

== ENCOUNTER → 2024-01-08 11:14 | Outpatient (BNVA) | payer OTHER, SELFPAY | PROVIDERS: PCP Family Medicine; Referring Provider Family Medicine; Visit Provider Internal Medicine Cardiovascular Disease | DX: I48.91 Unspecified atrial fibrillation (principal); I34.1 Nonrheumatic mitral (valve) prolapse | CPT/HCPCS: 93005; 99213 ==

== ENCOUNTER 2024-01-14 15:35 | Outpatient (REF) | payer OTHER, SELFPAY ==
[2024-01-14 16:05] LABS: HCT 42.4 % (36.0-46.0); HGB 13.9 g/dL (11.2-15.7); MCH 31.2 pg (27.0-33.0); MCHC 32.8 % (32.0-36.0); MCV 95 fL (80-95); MPV 10.4 fL (8.0-11.0); Platelet Count 332 10^3/uL (130-400); RBC 4.46 10^6/uL (3.93-5.22); RDW 12.9 % (11.7-14.6); RDW-SD 45.6 fL; WBC 4.74 10^3/uL (4.4-10.8)
[2024-01-14 16:18] LABS: ALT 33 U/L (14-59); AST 13 U/L (15-37); Albumin 4.1 g/dL (3.4-5.0); Alkaline Phosphatase 125 U/L (46-116); Anion Gap 10.9 mmol/L (3-11); BUN 19 mg/dL (7-18); Bilirubin, Total 0.5 mg/dL (0.2-1.0); CO2 27.1 mmol/L (21.0-32.0); CREATININE 0.8 mg/dL (0.55-1.02); Calculated LDL 78 mg/dL (<100); Chloride 106 mmol/L (98-107); Cholesterol 158 mg/dL (<200); Estimated GFR 81.21 (mL/min/1.73m2); Glucose 91 mg/dL (74-106); HDL Cholesterol 70 mg/dL (40-60); Potassium 4.3 mmol/L (3.5-5.1); Sodium 144 mmol/L (136-145); Total Protein 6.8 g/dL (6.4-8.2); Triglyceride 52 mg/dL (<150)
[2024-01-14 17:20] LABS: Vitamin D 25 Total 42.7 ng/mL (30-100)
== END 2024-01-14 15:36 | disposition home or self-care (01) ==
LOC: NCHCN 15:35
PROVIDERS: PCP Family Medicine; Visit Provider Family Medicine
DX: E78.5 Hyperlipidemia, unspecified (principal); E55.9 Vitamin D deficiency, unspecified; I48.91 Unspecified atrial fibrillation
CPT/HCPCS: 80053; 80061; 82306; 85027

== ENCOUNTER 2024-01-25 08:17 | Outpatient (CLI) | payer OTHER, SELFPAY ==
--- NOTE | 2024-01-25 08:15 | RT.EKG_ITS ---
APPROVED REPORT Exam: Resting ECG Reason for Exam: afib Patient Location: O HR:78 bpm ECG Measurements Heart Rate 78 AXIS OR 171 P 55 QRSd 96 QRS 15 QT 371 T 45 QTc 423 Conclusion Sinus rhythm...normal P axis, V-rate 50- 99 Normal Electrocardiogram
== END 2024-01-25 08:18 | disposition home or self-care (01) ==
LOC: DI.CARD 08:17
PROVIDERS: PCP Family Medicine; Visit Provider Internal Medicine Cardiovascular Disease
DX: I48.91 Unspecified atrial fibrillation (principal)
CPT/HCPCS: 93010

== ENCOUNTER → 2024-01-25 11:17 | Outpatient (BNVA) | payer OTHER, SELFPAY | PROVIDERS: PCP Family Medicine; Referring Provider Family Medicine; Visit Provider Internal Medicine Cardiovascular Disease | DX: I48.0 Paroxysmal atrial fibrillation (principal); I34.1 Nonrheumatic mitral (valve) prolapse | CPT/HCPCS: 93005; 99213 ==

== ENCOUNTER → 2024-01-27 12:46 | Outpatient (BNVA) | payer OTHER, SELFPAY | PROVIDERS: PCP Family Medicine; Referring Provider Family Medicine; Visit Provider Internal Medicine Cardiovascular Disease | DX: I48.91 Unspecified atrial fibrillation (principal) | CPT/HCPCS: 99215 ==

== ENCOUNTER → 2024-03-15 03:17 | Outpatient (CLI) | payer OTHER, SELFPAY ==
--- NOTE | 2024-03-15 11:45 | DI.MAMMO_ITS ---
Exam(s) MAMMO SCREENING EXAM: MAMMO SCREENING CLINICAL HISTORY: screening. TECHNIQUE: Bilateral full field digital CC and MLO mammographic images were obtained with 3D tomosyn thesis and utilizing computer aided detection (CAD). COMPARISON: Prior mammograms were reviewed. FINDINGS: No new right breast findings. In the left breast there are few benign-appearing nodules again noted. One of these has slightly inc reased in size, this located 3 cm in from the nipple on the CC view, it measuring 5 x 4 mm. Another slightly smaller nodule posteriorly in the left breast on the CC view located 11 cm in from the nippl e also again noted. There are no new spiculated masses nor malignant appearing microcalcification groups. There is no significant architectural distortion nor skin thickening-retraction. IMPRESSION: 1. No radiographic evidence of malignancy in the right breast. 2. Left breast nodules. One is slightly increased in size. Spot compression view and ultrasound rec ommended. BI-RADS Category 0 - Assessment Incomplete: Need additional imaging evaluation Breast Density - Category B - Scattered areas of fibroglandular density Breast density Category C or D implies that the patient has dense breast tissue. Dense breast tissue can make it harder to find cancer on a mammogram. Dense breast tissue is also associated with an incr eased risk of breast cancer. This information about the result of the mammogram report was provided to the patient to raise their awareness. Use this report when you speak with the patient about their risks for breast cancer, which includes their family history. At that time, you may recommend additional screening tests (Ultrasoun d or MRI) as these tests may add significant information. A negative radiographic report should not delay biopsy if a dominant or clinically suspicious mass is present. Up to ten percent of cancers are not identified on mammography. A negative report may reinforce clinical impression. Adenosis and dense breasts may obscure an underlying neoplasm. False positive reports average 6 to 10%. Patient will receive a letter notifying them of these results.
== END ==
PROVIDERS: PCP Family Medicine; Visit Provider Obstetrics & Gynecology Gynecology
DX: Z12.31 Encounter for screening mammogram for malignant neoplasm of breast (principal); R92.8 Other abnormal and inconclusive findings on diagnostic imaging of breast
CPT/HCPCS: 77063; 77067

== ENCOUNTER → 2024-03-17 08:46 | Outpatient (CLI) | payer OTHER, SELFPAY ==
--- NOTE | 2024-03-17 | DI.MAMMO_ITS ---
Exam(s) MAMMO SCREEN CALL BACK UNI EXAM: MAMMO SCREEN CALL BACK UNI CLINICAL HISTORY: LEFT BREAST NODULES, ONE SLIGHTLY INCREASED IN SIZE R92.8 ABNL MAMMO. TECHNIQUE: Craniocaudal and mediolateral oblique Full Field Digital Mammography views of the left br east with Computer Aided Diagnosis. COMPARISON: Comparison is made with prior examinations. FINDINGS: Mammography/Tomosynthesis: Masses/Architectural Distortion: The nodules described on the screening mammogram has shown no change compared to prior examinations. There are well-circumscribed. No suspicious nodules are seen. No areas of architectural distortion are seen. Microcalcifictions: No suspicious pleomorphic-type are seen. Skin Thickening/Nipple Retraction: None. IMPRESSION: 1. No evidence of malignancy is noted. 2. Unless there is more urgent need, follow-up screening mammography is recommended, as per [employer] guidelines. 3. The findings were discussed with the patient on the date of the examination. BI-RADS Category 2 - Benign Findings Breast Density - Category B - Scattered areas of fibroglandular density Breast density Category C or D implies that the patient has dense breast tissue. Dense breast tissue can make it harder to find cancer on a mammogram. Dense breast tissue is also associated with an incr eased risk of breast cancer. This information about the result of the mammogram report was provided to the patient to raise their awareness. Use this report when you speak with the patient about their risks for breast cancer, which includes their family history. At that time, you may recommend additional screening tests (Ultrasoun d or MRI) as these tests may add significant information. A negative radiographic report should not delay biopsy if a dominant or clinically suspicious mass is present. Up to ten percent of cancers are not identified on mammography. A negative report may reinforce clinical impression. Adenosis and dense breasts may obscure an underlying neoplasm. False positive reports average 6 to 10%. Patient will receive a letter notifying them of these results.
== END ==
PROVIDERS: PCP Family Medicine; Visit Provider Obstetrics & Gynecology Gynecology
DX: R92.8 Other abnormal and inconclusive findings on diagnostic imaging of breast (principal)
CPT/HCPCS: 77063; 77067

== ENCOUNTER → 2024-05-04 14:42 | Outpatient (BNVA) | payer OTHER, SELFPAY | PROVIDERS: PCP Family Medicine; Referring Provider Family Medicine; Visit Provider Internal Medicine Cardiovascular Disease | DX: I48.91 Unspecified atrial fibrillation (principal) | CPT/HCPCS: 99214 ==

== ENCOUNTER 2024-05-05 18:42 | Outpatient (REF) | payer OTHER, SELFPAY ==
[2024-05-05 14:53] LABS: ALT 32 U/L (14-59); AST 16 U/L (15-37); Albumin 4.2 g/dL (3.4-5.0); Alkaline Phosphatase 121 U/L (46-116); Anion Gap 9.6 mmol/L (3-11); BUN 17 mg/dL (7-18); Bilirubin, Total 0.47 mg/dL (0.2-1.0); CO2 28.4 mmol/L (21.0-32.0); CREATININE 0.8 mg/dL (0.55-1.02); Calcium 9.3 mg/dL (8.5-10.1); Chloride 104 mmol/L (98-107); Estimated GFR 81.21 (mL/min/1.73m2); Glucose 83 mg/dL (74-106); Potassium 4.8 mmol/L (3.5-5.1); Sodium 142 mmol/L (136-145)
== END 2024-05-05 18:43 | disposition home or self-care (01) ==
LOC: NCHCN 18:42
PROVIDERS: PCP Family Medicine; Visit Provider Family Medicine
DX: I48.0 Paroxysmal atrial fibrillation (principal)
CPT/HCPCS: 80053

== ENCOUNTER 2024-05-27 15:44 | Outpatient (REF) | payer OTHER, SELFPAY ==
[2024-05-27 15:28] LABS: ALT 30 U/L (14-59); AST 19 U/L (15-37); Albumin 3.3 g/dL (3.4-5.0); Alkaline Phosphatase 101 U/L (46-116); Anion Gap 10.5 mmol/L (3-11); BUN 16 mg/dL (7-18); Bilirubin, Total 0.29 mg/dL (0.2-1.0); CO2 27.5 mmol/L (21.0-32.0); Calcium 8.7 mg/dL (8.5-10.1); Chloride 97 mmol/L (98-107); Estimated GFR 62.13 (mL/min/1.73m2); GGT 22 U/L (5-55); Glucose 118 mg/dL (74-106); Potassium 4.1 mmol/L (3.5-5.1); Sodium 135 mmol/L (136-145); Total Protein 6.6 g/dL (6.4-8.2)
== END 2024-05-27 15:45 | disposition home or self-care (01) ==
LOC: NCHCN 15:44
PROVIDERS: PCP Family Medicine; Visit Provider Family Medicine
DX: I48.91 Unspecified atrial fibrillation (principal)
CPT/HCPCS: 80053; 82977

== ENCOUNTER 2024-05-31 02:17 | Outpatient (CLI) | payer OTHER, SELFPAY ==
--- NOTE | 2024-05-31 | DI.RAD_ITS ---
Exam(s) XR CHEST 2V PA LATERAL EXAM: XR CHEST 2V PA LATERAL CLINICAL HISTORY: PLEURAL EFFUSION , BILATERAL J90 TECHNIQUE: 2D digital imaging was performed of the chest. Two images were obtained. PA and lateral views were obtained. COMPARISON: CR XR CHEST 2V PA LATERAL from 01/04/2024 CR XR PORTABLE CHEST AP from 01/07/2024 FINDINGS: MEDIASTINUM: Normal. HEART: Normal. PULMONARY VASCULATURE: Normal. LUNGS: Clear. PLEURAL SPACE: There is a small left pleural effusion. There is blunting of the right costophrenic a ngle suggesting a tiny right pleural effusion. BONE:Within normal limits for the patient's age. OTHER FINDINGS:Normal. IMPRESSION: Small left and tiny right pleural effusions. DATA REPOSITORY: RADIATION DOSE DELIVERED:
== END 2024-05-31 02:37 ==
LOC: DI 02:17
PROVIDERS: PCP Family Medicine; Visit Provider Internal Medicine
DX: J90 Pleural effusion, not elsewhere classified (principal)
CPT/HCPCS: 71046

== ENCOUNTER 2024-06-20 10:11 | Outpatient (CLI) | payer OTHER, SELFPAY ==
--- NOTE | 2024-06-20 10:00 | RT.EKG_ITS ---
APPROVED REPORT Exam: Resting ECG Reason for Exam: Moses Patient Location: O HR:93 bpm ECG Measurements Heart Rate 93 AXIS IL 195 P 72 QRSd 104 QRS 25 QT 374 T 54 QTc 466 Conclusion Sinus rhythm...normal P axis, V-rate 50- 99 Left atrial enlargement...P, P'>60mS, <-0.15mV V1
== END 2024-06-20 10:12 | disposition home or self-care (01) ==
LOC: DI.CARD 10:12
PROVIDERS: PCP Family Medicine; Referring Provider Family Medicine; Visit Provider Internal Medicine Cardiovascular Disease
DX: I48.91 Unspecified atrial fibrillation (principal)
CPT/HCPCS: 93010

== ENCOUNTER → 2024-06-20 10:11 | Outpatient (BNVA) | payer OTHER, SELFPAY | PROVIDERS: PCP Family Medicine; Referring Provider Family Medicine; Visit Provider Internal Medicine Cardiovascular Disease | DX: I48.0 Paroxysmal atrial fibrillation (principal); R94.31 Abnormal electrocardiogram [ECG] [EKG] | CPT/HCPCS: 93005; 99213 ==

== ENCOUNTER 2024-06-29 14:17 | Outpatient (CLI) | payer OTHER, SELFPAY ==
--- NOTE | 2024-06-29 14:30 | RT.EKG_ITS ---
APPROVED REPORT Exam: Resting ECG Reason for Exam: afib Patient Location: O HR:102 bpm ECG Measurements Heart Rate 102 AXIS AZ 185 P 70 QRSd 107 QRS 43 QT 349 T -16 QTc 455 Conclusion Sinus tachycardia...rate> 99 Left atrial enlargement...P, P'>60mS, <-0.15mV V1 Borderline T abnormalities, diffuse leads...T flat/neg Baseline wander in lead(s) I
== END 2024-06-29 14:18 | disposition home or self-care (01) ==
LOC: DI.CARD 14:42
PROVIDERS: PCP Family Medicine; Referring Provider Family Medicine; Visit Provider Internal Medicine Cardiovascular Disease
DX: I48.91 Unspecified atrial fibrillation (principal)
CPT/HCPCS: 93010

== ENCOUNTER → 2024-06-29 14:17 | Outpatient (BNVA) | payer OTHER, SELFPAY | PROVIDERS: PCP Family Medicine; Referring Provider Family Medicine; Visit Provider Internal Medicine Cardiovascular Disease | DX: I48.91 Unspecified atrial fibrillation (principal); R94.31 Abnormal electrocardiogram [ECG] [EKG]; I51.7 Cardiomegaly | CPT/HCPCS: 93005; 99214 ==

== ENCOUNTER 2024-07-01 00:56 | Outpatient (CLI) | payer OTHER, SELFPAY ==
--- NOTE | 2024-07-01 07:15 | DI.US_ITS ---
APPROVED REPORT EXAM: Comprehensive 2D, Doppler, and color-flow Echocardiogram Patient Location: Out-Patient Sand Hauler: Bro Thakur RDCS (AE) Indications: Pericardial effusion, mitral valve prolapse, atrial fibrillation Conclusion Normal left ventricular wall thickness and chamber size. Ejection fraction is 55%. Wall motion is n ormal Normal right ventricular size and function Both atria are normal in size Mildly elongated mitral leaflets with late systolic bowing. There is trivial mitral regurgitation Estimated right ventricular systolic pressure is 33 mmHg There is no pericardial effusion Wall motion Left Ventricle The left ventricle is normal size. The left ventricular ejection fraction is within the normal range. There is normal left ventricular wall thickness. There is no ventricular septal defect visualized. E F is 55% Right Ventricle The right ventricle is normal size. The right ventricular systolic function is normal. Atria The left atrium size is normal. The right atrium size is normal. The interatrial septum is intact wit h no evidence for an atrial septal defect. Aortic Valve The aortic valve is normal in structure. Aortic valve is trileaflet. There is no aortic valvular sten osis. No aortic regurgitation is present. Mitral Valve Mildly elongated leaflets No evidence of mitral valve stenosis. Trace mitral regurgitation. Late syst olic bowing Tricuspid Valve The tricuspid valve is normal in structure. There is no tricuspid valve stenosis. Mild tricuspid regu rgitation. The RVSP is 32.9 mmHg. Pulmonic Valve The pulmonary valve is normal in structure. There is no pulmonic valvular stenosis. There is no pulmo nathanael valvular regurgitation. Great Vessels The aortic root is normal in size. The ascending aorta is normal in size. Aortic arch is normal in ca liber. The IVC collapses <50% with inspiration. Pericardium There is no pericardial effusion. Small left pleural effusion. 2D Dimensions IVSD d PLAX 0.84 cm F: 0.6-1.0 Ao Root d 3.20 cm F: 2.7 - 3.3 LVPW d PLAX 0.78 cm F: 0.6 - 1.0 Ao Asc Diam d 3.12 cm F: 2.3 - 3.1 LVID d PLAX 4.12 cm F: 3.8 - 5.2 LVDs 3.15 cm F: 2.2 - 3.5 LV EF Teichholz 47.7 % FS 23.65 % LV EDV (Teich) 75.1 mL LV ESV (Teich) 39.3 mL Stroke Vol Index (Teich) 20.58 M-Mode TAPSE 1.74 cm (M/F) >1.7 Auto EF LV EDV A4C 71.5 mL LV EDV A2C 74.3 mL LV EDV BP 72.4 mL LV ESV A4C 37.8 mL LV ESV A2C 40.2 mL LV ESV BP 38.7 mL LVEF(%) A4C 47.1 % LVEF(%) A2C 45.9 % LVEF(%) BP 46.6 % LV SV A4C 33.6 ml LV SV A2C 34.1 ml LV SV BP 33.7 ml LV CO A4C 3.1 L/min LV CO A2C 3.1 L/min LV CO BP 3.1 L/min HR A4C 92.08 BPM HR A2C 90.92 BPM LV EDV Index (BP) LA Volume LA Length A4C 3.0 cm LA Length A2C 3.9 cm LA Area A4C s 7.34 cm2 LA Area A2C s 9.54 cm2 LA Vol A4C A-L 15.39 mL LA Vol A2C A-L 19.60 mL LA Vol Biplane A-L 20.0 mL LA Vol/BSA A4C A-L LA Vol/BSA A2C A-L LA Vol/BSA BP A-L 11.5 mL/m2 LA Vol A4C MOD 14.0 mL LA Vol A2C MOD 18.5 mL LA Vol BP MOD 18.1 mL RA Volume RA Area A4C 9.8 cm2 RA ESV A4C (A-L) 21.2mL RA Vol/BSA A4C A-L RA Length A4C 3.9 cm RA ESV A4C (MOD) 19.7mL LV Diastology MV E' medial 0.103 (>0.07 m/s) MV E Vmax 0.72 (0.4-1.3 m/s) MV E/E' MED 6.98 (<14) MV A Vmax 0.55 (0.4-1.3 m/s) MV E' lateral 0.116 (>0.1 m/s) E/A Ratio 1.3 MV E/E' LAT 6.19 (<14) MV E' Average 0.109 m/s MV E/E'(average) 6.56 Aortic Valve AoV Vmax 0.96 m/s LVOT Vmax 0.78 m/s AoV Peak Grad 3.7 mmHg LVOT Peak Grad 2.5 mmHg AoV Area (Vmax) 2.40 cm2 LVOT VTI 0.148 m AoV VTI 0.194 m LVOT Mean Grad 1.5 mmHg AoV Mean Dion. 0.75 m/s LVOT SV 43.21 mL AoV Mean Grad 2.5 mmHg LVOT Diam s 1.90 cm AoV Area (VTI) 2.23 cm2 AV Regurg Peak Gr. 3.67 mmHg Velocity Ratio 0.81 Mitral Valve MV DT 92 (160-240 msec) MV Vmax TIPS 0.85 m/s MV Mean Grad 1.5 (<2mmHg) MV VTI 0.161 m Pulmonary Valve PV Vmax 0.98 (0.5-1.5 m/s) RVOT Vmax 0.61 m/s PV Peak Grad 3.9 mmHg RVOT Peak Gr. 1.5 mmHg PV Mean Dion 0.67 m/s RVOT VTI 0.097 m PV Mean Grad 2.1 mmHg RVOT Mean Gr. 0.7 mmHg Tricuspid Valve RA Pressure 8.00 mmHg TR Vmax 2.49 m/s TR Peak Grad 24.8 mmHg RVSP (TR) 32.9 mmHg
== END 2024-07-01 01:16 ==
LOC: DI 00:56
PROVIDERS: PCP Family Medicine; Visit Provider Internal Medicine Cardiovascular Disease
DX: I48.0 Paroxysmal atrial fibrillation (principal)
CPT/HCPCS: 93306

== ENCOUNTER 2024-08-03 09:21 | Outpatient (CLI) | payer OTHER, SELFPAY ==
--- NOTE | 2024-08-03 09:15 | RT.EKG_ITS ---
APPROVED REPORT Exam: Resting ECG Reason for Exam: af Patient Location: O HR:90 bpm ECG Measurements Heart Rate 90 AXIS MA 172 P 49 QRSd 100 QRS -6 QT 381 T 43 QTc 467 Conclusion Sinus rhythm...normal P axis, V-rate 50- 99
== END 2024-08-03 09:22 | disposition home or self-care (01) ==
LOC: DI.CARD 09:22
PROVIDERS: PCP Family Medicine; Visit Provider Internal Medicine Cardiovascular Disease
DX: I48.0 Paroxysmal atrial fibrillation (principal); Z98.890 Other specified postprocedural states
CPT/HCPCS: 93010

== ENCOUNTER → 2024-08-03 13:07 | Outpatient (BNVA) | payer OTHER, SELFPAY | PROVIDERS: PCP Family Medicine; Referring Provider Family Medicine; Visit Provider Internal Medicine Cardiovascular Disease | DX: I48.0 Paroxysmal atrial fibrillation (principal) | CPT/HCPCS: 93005; 99213 ==

== ENCOUNTER 2024-08-30 01:16 | Outpatient (CLI) | payer OTHER, SELFPAY ==
--- NOTE | 2024-08-30 | DI.MRI_ITS ---
Exam(s) MR THORACIC SPINE WO EXAM: MR THORACIC SPINE WO CLINICAL HISTORY: Pain in thoracic spine, M54.6. TECHNIQUE: Multiplanar multisequence MRI of the Thoracic spine was performed. COMPARISON: CR XR CHEST 2V PA LATERAL from 05/31/2024 FINDINGS: Bones: The vertebral body heights are well maintained except for T10 which shows Schmorl's node invag ination of the superior endplate. There are minimal endplate osteophytes.. Alignment is satisfactory. The marrow signal characteristics are unremarkable. Hemangiomas in the T5, T9 and L1 vertebral bodies. Cord: The thoracic cord is normal size and signal intensity. No intrinsic cord lesion is present. Soft tissues: Normal. T1-2: No disc herniation or bulge is identified. T2-3: No disc herniation or bulge is identified. T3-4: No disc herniation or bulge is identified. T4-5: No disc herniation or bulge is identified. T5-6: No disc herniation or bulge is identified. T6-7: No disc herniation or bulge is identified. T7-8: No disc herniation or bulge is identified. T8-9: No disc herniation or bulge is identified. T9-10: No disc herniation or bulge is identified. T10-11:No disc herniation or bulge is identified. T11-12: No disc herniation or bulge is identified. T12-L1: No disc herniations or bulges are present. IMPRESSION: No acute abnormality in the thoracic spine. DATA REPOSITORY:
== END 2024-08-30 01:36 ==
LOC: DI 01:16
PROVIDERS: PCP Family Medicine; Visit Provider Family Medicine
DX: M54.6 Pain in thoracic spine (principal)
CPT/HCPCS: 72146

== ENCOUNTER → 2024-09-06 09:20 | Outpatient (BNVA) | payer OTHER, SELFPAY | PROVIDERS: PCP Family Medicine; Referring Provider Family Medicine; Visit Provider Internal Medicine Cardiovascular Disease | DX: I48.0 Paroxysmal atrial fibrillation (principal) | CPT/HCPCS: 99213 ==

== ENCOUNTER 2024-11-02 09:15 | Outpatient (CLI) | payer MEDICARE, SELFPAY ==
--- NOTE | 2024-11-02 09:15 | RT.EKG_ITS ---
APPROVED REPORT Exam: Resting ECG Reason for Exam: PAF Patient Location: O HR:83 bpm ECG Measurements Heart Rate 83 AXIS MT 154 P 62 QRSd 85 QRS 6 QT 361 T 51 QTc 425 Conclusion Sinus rhythm...normal P axis, V-rate 50- 99 Probable left atrial enlargement...P >50mS, <-0.10mV V1 Otherwise normal ECG
== END 2024-11-02 09:16 | disposition home or self-care (01) ==
LOC: DI.CARD 09:18
PROVIDERS: PCP Family Medicine; Visit Provider Internal Medicine Cardiovascular Disease
DX: I48.0 Paroxysmal atrial fibrillation (principal)
CPT/HCPCS: 93010

== ENCOUNTER → 2024-11-02 09:44 | Outpatient (BNVA) | payer MEDICARE, SELFPAY | PROVIDERS: PCP Family Medicine; Referring Provider Family Medicine; Visit Provider Internal Medicine Cardiovascular Disease | DX: I48.0 Paroxysmal atrial fibrillation (principal) | CPT/HCPCS: 93005; 99213 ==

== ENCOUNTER 2025-01-26 08:12 | Outpatient (REF) | payer MEDICARE, SELFPAY ==
[2025-01-26 15:29] LABS: HCT 41.3 % (36.0-46.0); HGB 13.9 g/dL (11.2-15.7); MCH 31.7 pg (27.0-33.0); MCHC 33.7 % (32.0-36.0); MCV 94 fL (80-95); MPV 10.4 fL (8.0-11.0); Platelet Count 275 10^3/uL (130-400); RBC 4.38 10^6/uL (3.93-5.22); RDW 13.1 % (11.7-14.6); WBC 5.41 10^3/uL (4.4-10.8)
[2025-01-26 16:05] LABS: ALT 25 U/L (14-59); AST 20 U/L (15-37); Albumin 4.1 g/dL (3.4-5.0); Alkaline Phosphatase 108 U/L (46-116); Anion Gap 6.6 mmol/L (3-11); BUN 24 mg/dL (7-18); Bilirubin, Total 0.4 mg/dL (0.2-1.0); CO2 29.4 mmol/L (21.0-32.0); CREATININE 0.6 mg/dL (0.55-1.02); Calculated LDL 77 mg/dL (<100); Chloride 108 mmol/L (98-107); Cholesterol 162 mg/dL (<200); Estimated GFR 98.32 (mL/min/1.73m2); Glucose 86 mg/dL (74-106); HDL Cholesterol 73 mg/dL (>or=50); Potassium 4.7 mmol/L (3.5-5.1); Sodium 144 mmol/L (136-145); Total Protein 6.9 g/dL (6.4-8.2); Triglyceride 63 mg/dL (<150); Vitamin D 25 Total 44 ng/mL (30-100)
== END 2025-01-26 08:13 | disposition home or self-care (01) ==
LOC: NCHCN 08:12
PROVIDERS: PCP Family Medicine; Visit Provider Family Medicine
DX: E78.5 Hyperlipidemia, unspecified (principal); E55.9 Vitamin D deficiency, unspecified; I48.91 Unspecified atrial fibrillation
CPT/HCPCS: 80053; 80061; 82306; 85027

== ENCOUNTER 2025-02-07 02:05 | Outpatient (CLI) | payer MEDICARE, SELFPAY ==
--- NOTE | 2025-02-07 12:30 | DI.RAD_ITS ---
Exam(s) XR FOOT LT COMPLETE EXAM: XR FOOT LT COMPLETE CLINICAL HISTORY: Bunion LT FOOT, M21.612. TECHNIQUE: 2D digital imaging was performed of the left foot. Three images were obtained. AP, obli que and lateral views were obtained. COMPARISON: No exams were available for comparison FINDINGS: BONES: No acute fracture is present. No bony destructive lesion is seen. There is a small plantar bonny caneal spur. JOINTS: No dislocation present. There is a mild bunion deformity present. There are mild degenerativ e changes present with narrowing of the 1st MTP joint. SOFT TISSUE: Normal. IMPRESSION: Mild bunion deformity and mild narrowing at the 1st MTP joint. DATA REPOSITORY: RADIATION DOSE DELIVERED:
== END 2025-02-07 02:25 ==
LOC: DI 02:06
PROVIDERS: PCP Family Medicine; Visit Provider Podiatrist
DX: M21.612 Bunion of left foot (principal); M20.22 Hallux rigidus, left foot; M79.672 Pain in left foot
CPT/HCPCS: 20600; J0702; J1100; 73630

== ENCOUNTER 2025-02-27 10:13 | Outpatient (CLI) | payer MEDICARE, SELFPAY ==
--- NOTE | 2025-02-27 10:00 | DI.RAD_ITS ---
Exam(s) XR HAND LT COMPLETE EXAM: XR HAND LT COMPLETE CLINICAL HISTORY: left hand pain. TECHNIQUE: 2D digital imaging was performed of the left hand. Three views were obtained. AP, later al and oblique views were obtained. COMPARISON: CR ARTHITIS SERIES-CATHLEEN HAND WRIST from 03/22/2010 FINDINGS: BONES: No acute fracture is present. No bony destructive lesion is seen. JOINTS: No dislocation present. There are mild degenerative changes seen in the left hand and wrist c haracterized by joint space narrowing and osteophytes. Findings are most marked at the PIP joints of the fingers, the interphalangeal joint of the thumb, the 1st CMC joint and the articulation of the s caphoid and the trapezium and trapezoid. No periarticular osteopenia or erosions are seen. No soft tissue calcifications are present. SOFT TISSUE: Normal. IMPRESSION: Mild degenerative changes of the left hand. DATA REPOSITORY: RADIATION DOSE DELIVERED:
--- NOTE | 2025-02-27 10:00 | DI.RAD_ITS ---
Exam(s) XR HAND RT COMPLETE EXAM: XR HAND RT COMPLETE CLINICAL HISTORY: right hand pain. TECHNIQUE: 2D digital imaging was performed of the right hand. Three images were obtained. AP, late ral and oblique views were obtained. COMPARISON: CR ARTHITIS SERIES-CATHLEEN HAND WRIST from 03/22/2010 FINDINGS: BONES: No acute fracture is present. No bony destructive lesion is seen. JOINTS: No dislocation present. Mild degenerative changes are seen in the hand characterized by joint space narrowing and osteophytes. The findings are most marked at the interphalangeal joints of the fingers. There also mild degenerative changes seen at the 1st CMC joint and the articulation of the scaphoid in the quadrangular bones. No erosions or periarticular osteopenia is present. No soft tis beulah calcifications are present. SOFT TISSUE: Normal. IMPRESSION: Mild degenerative changes seen in the right hand. DATA REPOSITORY: RADIATION DOSE DELIVERED:
== END 2025-02-27 10:14 | disposition home or self-care (01) ==
LOC: DIORS 10:14
PROVIDERS: PCP Family Medicine; Referring Provider Family Medicine; Visit Provider Student in an Organized Health Care Education/Training Program
DX: M79.642 Pain in left hand (principal); M79.641 Pain in right hand; M19.041 Primary osteoarthritis, right hand; M19.042 Primary osteoarthritis, left hand
CPT/HCPCS: 99214; 73130

== ENCOUNTER 2025-03-07 09:09 | Outpatient (CLI) | payer MEDICARE, SELFPAY ==
--- NOTE | 2025-03-07 09:30 | RT.EKG_ITS ---
APPROVED REPORT Exam: Resting ECG Reason for Exam: pt felt episode of afib last night Patient Location: O HR:85 bpm ECG Measurements Heart Rate 85 AXIS ND 166 P 56 QRSd 79 QRS 8 QT 352 T 41 QTc 419 Conclusion Sinus rhythm...normal P axis, V-rate 50- 99 Probable left atrial enlargement...P >50mS, <-0.10mV V1 RSR' in V1 or V2,
== END 2025-03-07 09:10 | disposition home or self-care (01) ==
LOC: DI.CARD 09:38
PROVIDERS: PCP Family Medicine; Visit Provider Internal Medicine Cardiovascular Disease
DX: I48.91 Unspecified atrial fibrillation (principal); I51.7 Cardiomegaly
CPT/HCPCS: 93010

== ENCOUNTER → 2025-03-07 09:09 | Outpatient (BNVA) | payer MEDICARE, SELFPAY | PROVIDERS: PCP Family Medicine; Referring Provider Family Medicine; Visit Provider Internal Medicine Cardiovascular Disease | DX: I48.0 Paroxysmal atrial fibrillation (principal) | CPT/HCPCS: 99213; 93005 ==

== ENCOUNTER 2025-03-13 00:15 | Outpatient (CLI) | payer MEDICARE, SELFPAY ==
--- NOTE | 2025-03-13 08:00 | DI.RAD_ITS ---
Exam(s) RF JOINT INJECTION FLUORO GUID EXAM: RF JOINT INJECTION FLUORO GUID CLINICAL HISTORY: PAIN, STT JOINT INJ UNDER FLUORO,arthritis lt hand,m19.042. TECHNIQUE: 2D and realtime digital imaging was performed. Fluoroscopy was provided for guidance with performing a joint injection. COMPARISON: No exams were available for comparison FINDINGS: Please see procedure note for details. Fluoro time: 5seconds RADIATION DOSE DELIVERED: Ka,r=0.25 mGy
--- NOTE | 2025-03-13 08:12 | DI.RAD_ITS ---
Exam(s) RF JOINT INJECTION FLUORO GUID EXAM: RF JOINT INJECTION FLUORO GUID CLINICAL HISTORY: PAIN,STT JOINT INJ UNDER FLUORO,arthritis rt hand,m19.041 TECHNIQUE: 2D and realtime digital imaging was performed. CONTRAST MATERIAL: Refer to procedure report. COMPARISON: RF RF JOINT INJECTION FLUORO GUID from 03/13/2025 FINDINGS: Fluoroscopy was provided for Dr. Manzanares during the performance of a right wrist injection. Please refer to the procedure report for complete details. Ka,r=0.51 mGy IMPRESSION: RADIATION DOSE DELIVERED: 0.0 0.0 0
[2025-03-13] MEDS: Omnipaque 300 MG/ML 10 ML BTL IJ ×2 (12:34→12:38)
[2025-03-13] MEDS: methylPREDNISolone ACETATE 40 MG/ML VIAL IM ×2 (12:35→12:39)
[2025-03-13] MEDS: Bupivacaine 0.5% Pres-Free 10 ML VIAL IJ ×2 (12:36→12:39)
--- NOTE | 2025-03-13 17:23 | OPPNE_ITS ---
Date of service: 03/13/25 Time of Service: 12:20 Procedure Note Date of procedure: 03/13/25 Procedure: Bilateral STT Fluoro Guided Injections Surgeon/Proceduralist/Physician: Rick Manzanares Procedure Diagnosis: Bilateral STT Arthritis Procedure Indications: Ayanna is a 69-year-old female who has known arthritis about both STT joints. I offered fluoroscopically guided injections of each which she is here for today. Procedure Description: Starting with the left wrist, the dorsum of the left wrist was prepped with Chlo raPrep. The proposed injection site and surrounding area was injected with 1% lidocaine. Utilizing fluoroscopy I identified the STT joint. Using a 25-gauge needle penetrated the skin and advanced the needle tip to the STT joint. A small amount of Omnipaque was placed showing penetration between the trapezoid and trapezium as well as a faint amount over the distal scaphoid, confirming appropriate location. I then injected 0.5 cc of 0.5% bupivacaine along with 20 mg of Depo-Medrol. A Band-Aid was applied. Attention was turned to the right wrist. Similarly, the dorsum of the left wrist was prepped ChloraPrep. The proposed injection site and surrounding area was injected with 1% lidocaine. With fluoroscopic guidance I position the needle overlying the STT joint and advanced into the joint. Once again, Omnipaque was utilized to identify the correct positioning. 0.5 cc of 0.5% bupivacaine along with 20 mg of Depo-Medrol was then injected without difficulty. The needle was withdrawn and hemostasis was obtained. A Band-Aid was applied. She tolerated the injections well without notable complication. We will call in another few weeks to see how she is doing.
== END 2025-03-13 00:35 ==
PROVIDERS: PCP Family Medicine; Visit Provider Student in an Organized Health Care Education/Training Program
DX: M19.041 Primary osteoarthritis, right hand (principal); M19.042 Primary osteoarthritis, left hand
CPT/HCPCS: 20605; 77002; J0665; J1010

== ENCOUNTER 2025-03-21 02:25 | Outpatient (CLI) | payer MEDICARE, SELFPAY ==
--- NOTE | 2025-03-21 14:38 | DI.MAMMO_ITS ---
Exam(s) MAMMO SCREENING EXAM: MAMMO SCREENING CLINICAL HISTORY: screening TECHNIQUE: Mammograms were interpreted according to the usual protocol including computer analysis with CAD system, tomosynthesis and C-view imaging. COMPARISON: 2015 through 2023 FINDINGS: The breasts are composed of scattered fibroglandular densities, Breast Density category B. No suspicious masses or suspicious microcalcifications are seen. No skin thickening or abnormal axillary lymph nodes are seen. There has been no significant change from prior exams. IMPRESSION: BI-RADS Category 1, Negative mammogram Yearly screening mammography is recommended. Breast Density - Category B - There are scattered areas of fibroglandular density. Breast density Category C or D implies that the patient has dense breast tissue. Dense breast tissue can make it harder to find cancer on a mammogram. Dense breast tissue is also associated with an increased risk of breast cancer. This information about the result of the mammogram report was provided to the patient to raise their awareness. Use this report when you speak with the patient about their risks for breast cancer, which includes their family history. At that time, you may recommend additional screening tests (Ultrasound or MRI) as these tests may add significant information. A negative radiographic report should not delay biopsy if a dominant or clinically suspicious mass is present. Up to ten percent of cancers are not identified on mammography. A negative report may reinforce clinical impression. Adenosis and dense breasts may obscure an underlying neoplasm. False positive reports average 6 to 10%. Patient will receive a letter notifying them of these results.
== END 2025-03-21 02:45 ==
PROVIDERS: PCP Family Medicine; Visit Provider Obstetrics & Gynecology
DX: Z12.31 Encounter for screening mammogram for malignant neoplasm of breast (principal); R92.323 Mammographic fibroglandular density, bilateral breasts
CPT/HCPCS: 77063; 77067

== ENCOUNTER 2025-05-03 08:00 | Outpatient (CLI) | payer MEDICARE, SELFPAY | END 2025-05-03 08:01 | disposition home or self-care (01) | LOC: DI.CARD 08:00 | PROVIDERS: PCP Family Medicine; Visit Provider Internal Medicine Cardiovascular Disease | CPT/HCPCS: 93010 ==

== ENCOUNTER → 2025-05-03 14:15 | Outpatient (BNVA) | payer MEDICARE, SELFPAY | PROVIDERS: PCP Family Medicine; Visit Provider Internal Medicine Cardiovascular Disease | DX: I48.91 Unspecified atrial fibrillation (principal) | CPT/HCPCS: 99214; 93005 ==

== ENCOUNTER 2025-07-04 01:14 | Outpatient (CLI) | payer MEDICARE, SELFPAY ==
--- NOTE | 2025-07-04 | DI.RAD_ITS ---
Exam(s) XR TMJ BL EXAM: XR TMJ BL CLINICAL HISTORY: ARTHRALGIA RT TEMPOROMANDIBULAR JOINT BILAT M26.621. TECHNIQUE: 2D digital imaging was performed. COMPARISON: No exams were available for comparison FINDINGS: The right TM joint exhibits no significant joint space narrowing and exhibits normal translation on the open-mouth view The left TM joint exhibits no significant joint space narrowing. Mild loss of translation range evident on the open-mouth view IMPRESSION: As above. If clinically indicated better study of the TM joints can be obtained with facial bone CT scan with multiplanar reconstructions. DATA REPOSITORY: RADIATION DOSE DELIVERED:
--- NOTE | 2025-07-04 | DI.RAD_ITS ---
Exam(s) XR HIP LT COMPLETE AP PELVIS EXAM: XR HIP LT COMPLETE AP PELVIS CLINICAL HISTORY: PAIN LEFT HIP M25.552. TECHNIQUE: 2D digital imaging was performed of the left hip. Two views were obtained. AP pelvis and lateral left hip views were obtained. COMPARISON: No exams were available for comparison FINDINGS: BONES: No acute fracture is present. No bony destructive lesion is seen. JOINTS: No dislocation present. There is mild narrowing of the left hip joint space which is otherwise unremarkable. There are mild degenerative changes seen at the sacroiliac joints, left greater than right. SOFT TISSUE: Normal. IMPRESSION: Mild left hip joint space narrowing. DATA REPOSITORY: RADIATION DOSE DELIVERED:
== END 2025-07-04 01:34 ==
LOC: DI 01:14
PROVIDERS: PCP Family Medicine; Visit Provider Family Medicine
DX: M25.552 Pain in left hip (principal); M26.621 Arthralgia of right temporomandibular joint; M16.12 Unilateral primary osteoarthritis, left hip
CPT/HCPCS: 70330; 73502

== ENCOUNTER → 2025-08-02 10:09 | Outpatient (BNVA) | payer MEDICARE, SELFPAY | PROVIDERS: PCP Family Medicine; Referring Provider Family Medicine; Visit Provider Podiatrist | DX: M20.22 Hallux rigidus, left foot (principal); M21.612 Bunion of left foot | CPT/HCPCS: 20600; J0702; J1100 ==

== ENCOUNTER → 2025-08-07 08:49 | Outpatient (BNVA) | payer MEDICARE, SELFPAY | PROVIDERS: PCP Family Medicine; Referring Provider Family Medicine; Visit Provider Physician Assistant | DX: M16.12 Unilateral primary osteoarthritis, left hip (principal) | CPT/HCPCS: 99213; 20611; J1010 ==

== ENCOUNTER → 2025-09-04 09:19 | Outpatient (BNVA) | payer MEDICARE, SELFPAY | PROVIDERS: PCP Family Medicine; Referring Provider Family Medicine; Visit Provider Student in an Organized Health Care Education/Training Program | DX: M16.12 Unilateral primary osteoarthritis, left hip (principal); M79.641 Pain in right hand; M79.642 Pain in left hand | CPT/HCPCS: 99214 ==